=== PATIENT | female | born 1950 | race Hispanic/Latino ===

== ENCOUNTER → 2017-04-24 | Outpatient (CLI) | payer MEDICARE ==
--- NOTE | 2017-04-24 12:30 | Diagnostic Imaging Report ---
PROCEDURE:X-RAY LEFT HAND, THREE OR MORE VIEWS COMPARISON:None. INDICATIONS:LEFT HAND PAIN FROM FALL FINDINGS: 3 views of the left hand (PA, lateral, and oblique) There are no fractures, dislocations, lytic or blastic lesions. There are moderate degenerative changes at the DIP joints and at the basilar joint of the thumb. The bones are well-mineralized. The soft-tissues are unremarkable. CONCLUSION: Osteoarthritis. No fractures. Dictated by: Robby Rader M.D. on 04/24/2017 at 12:39 Electronically approved by: Robby Rader M.D. on 04/24/2017 at 12:39
== END ==
LOC: RAD 10:08
PROVIDERS: ATTEND Internal Medicine
DX: M79.642 Pain in left hand (principal); M19.042 Primary osteoarthritis, left hand

== ENCOUNTER → 2018-03-24 | Outpatient (CLI) | payer MEDICARE ==
[~2018-03-24] MED LIST: AMLODIPINE BESYL5 MG PO; LEVOTHYROXINE75 MCG PO; ORENCIA125 MG/1 M; ROPINIROLE HC0.25 MG PO
--- NOTE | 2018-03-24 10:35 | Diagnostic Imaging Report ---
Abdominal ultrasound. History: Elevated liver function studies. Comparison: <None available>. Discussion: Transverse and longitudinal images of the abdomen were obtained demonstrating a liver of normal size with increased echogenicity measuring 12.2 cm in length. The portal vein is patent with hepatopetal flow and is within normal limits measuring 0.8 cm in diameter. The biliary tree is within normal limits with the common bile duct measuring 5 mm in diameter. The gallbladder has been removed. The kidneys are normal in size and echogenicity bilaterally without evidence of hydronephrosis, stones, or mass. The right kidney measures 10.7 x 4.7 x 5.0 cm and the left kidney measures 10.6 x 5.3 x 5.1 cm. The spleen is normal in size and appearance measuring 9.9 x 4.9 x 4.1 cm. The pancreatic head and body are visualized and are normal in appearance. The abdominal aorta is within normal limits and has a maximal measurement of 2.2 cm. There is no evidence of free fluid. IMPRESSION: Increased echogenicity of the liver without evidence of a mass. Signed by: Dr. Richard Roy DO on 03/24/2018 10:32 AM
== END ==
LOC: US 07:40
PROVIDERS: ATTEND Internal Medicine Gastroenterology
DX: R94.8 Abnormal results of function studies of other organs and systems (principal)
CPT/HCPCS: 76700

== ENCOUNTER → 2018-04-02 | Day surgery (SDC) | payer MEDICARE ==
[2018-04-01 14:53] LABS: BASOPHILS % 0.6 % (0.0-1.0); EOSINOPHILS # (AUTO) 0.2 (0.0-0.4); EOSINOPHILS % 2.3 % (0.0-6.0); HEMATOCRIT 43.8 % (34.2-44.1); HEMOGLOBIN 14.3 g/dL (12.0-16.0); LYMPHOCYTES # (AUTO) 1.8 (1.0-3.2); LYMPHOCYTES % 27.8 % (18.0-39.1); MEAN CORPUSCULAR HEMOGLOBIN 31.6 pg (28-32); MEAN CORPUSCULAR HGB CONC 32.6 g/dL (31-35); MEAN CORPUSCULAR VOLUME 96.9 fL (81-99); MONOCYTES # (AUTO) 0.7 (0.2-0.8); MONOCYTES % 9.8 % (4.4-11.3); NEUTROPHILS # (AUTO) 3.9 (2.1-6.9); NEUTROPHILS % 59.2 % (38.7-80.0); PLATELET COUNT 117 x10e3/uL (140-360); RED BLOOD COUNT 4.52 x10e6/uL (3.6-5.1); RED CELL DISTRIBUTION WIDTH 13.7 % (11.7-14.4)
[~2018-04-02] MED LIST changes: +LIDOCAINE HCL 2% LOCAL INJ 5 ML SDV VIAL INJ ONE; +MIDAZOLAM HCL 2 MG/2 ML VIAL ONE; +PROPOFOL IV EMULSION 10 MG/ML 50 ML VIAL ONE
--- OUTSIDE RECORDS SUMMARY | 2018-04-02 07:32 | XMS REPORT ---
Author Author Dereck Stone Organization [employer] Address Unknown Phone Unavailable Care Team Providers Care Brick Paving Checker Name Role Phone Dereck Stone CP Unavailable Allergies No Known Allergies Problems Problem Type Condition Code Onset Dates Condition Status Problem Osteopenia M85.80 Active Problem Shoulder pain, right M25.511 Active Problem Ankle pain, right M25.571 Active Problem Rheumatoid arthritis M06.9 Active Problem Long-term use of immunosuppressant medication Z79.899 Active Medications Medication Code System Code Instructions Start Date End Date Status Dosage Medrol Dose [facility] 08936964108 4mg Orally once a day Mar 04, 2018 Active as directed Results No Known Results Summary Purpose [employer]ClinicalWorks Submission
--- OUTSIDE RECORDS SUMMARY | 2018-04-02 07:32 | XMS REPORT ---
Author Author Dereck Stone Organization [employer] Address Unknown Phone Unavailable Care Team Providers Care Director Fundraising Name Role Phone Dereck Stone CP Unavailable Allergies, Adverse Reactions, Alerts Substance Reaction Event Type Humira Info Not Available Drug Allergy Enbrel Info Not Available Drug Allergy Problems Problem Type Condition Code Onset Dates Condition Status Problem Osteopenia M85.80 Active Problem Shoulder pain, right M25.511 Active Problem Ankle pain, right M25.571 Active Assessment Ankle pain, right M25.571 Active Assessment Rheumatoid arthritis M06.9 Active Problem Rheumatoid arthritis M06.9 Active Problem Long-term use of immunosuppressant medication Z79.899 Active Medications Medication Code System Code Instructions Start Date End Date Status Dosage Leflunomide ND 59396868824 20MG Dec 16, 2017 Active take one tablet by mouth once daily for 30 days Levothyroxine Sodium NDC 88946331557 75 MCG Orally Once a day Active 1 tablet Ibuprofen NDC 66121292261 250 MG Orally once a day Active 1 tablet Primidone NDC 44063921620 50 MG Orally once a day Active 1 tablet Calcium NDC 0 1200 MG orally daily Active 1 tablet ORENCIA SQ NDC 0 125MG SUBCUTANEOUSLY ONCE A WEEK Active 125MG PredniSONE NDC 0 5 MG Orally Once a day Active 1 tab vitamin D NDC 0 800 IU po Once a day Active 1 tablet Vital Signs Date/Time: August 18, 2017 BMI 31.30 Index Weight 155 lbs Height 59 in Temperature 96.7 F Cardiac Monitoring Heart Rate 78 /min Blood Pressure Diastolic 82 mm Hg Blood Pressure Systolic 132 mm Hg Results No Known Results Summary Purpose [employer] Submission
--- OUTSIDE RECORDS SUMMARY | 2018-04-02 07:32 | XMS REPORT ---
Author Author Dereck Stone Organization [employer] Address Unknown Phone Unavailable Care Team Providers Care Tractor Mechanic Apprentice Name Role Phone Dereck Stone CP Unavailable Allergies, Adverse Reactions, Alerts Substance Reaction Event Type Humira Info Not Available Drug Allergy Enbrel Info Not Available Drug Allergy Problems Problem Type Condition Code Onset Dates Condition Status Problem Shoulder pain, right M25.511 Active Problem Long-term use of immunosuppressant medication Z79.899 Active Problem Osteopenia M85.80 Active Assessment Long-term use of immunosuppressant medication Z79.899 Active Problem Rheumatoid arthritis M06.9 Active Assessment Rheumatoid arthritis M06.9 Active Medications Medication Code System Code Instructions Start Date End Date Status Dosage Levothyroxine Sodium NDC 97333820441 75 MCG Orally Once a day Active 1 tablet Calcium NDC 0 1200 MG orally daily Active 1 tablet Primidone NDC 49883254031 50 MG Orally once a day Active 1 tablet PredniSONE NDC 0 5 MG Orally Once a day Nov 07, 2016 Active 1 tab Leflunomide NDC 63229424259 20 MG Orally Once a day Feb 10, 2017 Active 1 tablet vitamin D NDC 0 800 IU po Once a day Active 1 tablet Ibuprofen NDC 71085865868 250 MG Orally once a day Active 1 tablet ORENCIA SQ NDC 0 125MG SUBCUTANEOUSLY ONCE A WEEK Jan 27, 2017 Active 125MG Vital Signs Date/Time: May 07, 2017 BMI 32.31 Index Weight 160 lbs Height 59 in Temperature 98.4 F Cardiac Monitoring Heart Rate 68 /min Blood Pressure Diastolic 74 mm Hg Blood Pressure Systolic 130 mm Hg Results No Known Results Summary Purpose [employer]Clinical[employer] Submission
--- OUTSIDE RECORDS SUMMARY | 2018-04-02 07:32 | XMS REPORT | Continuity of Care Document ---
Author Author [facility] Address Unknown Phone Unavailable Problems Problem Status Onset Date Classification Date Reported Comments Source Chronic right shoulder pain Active 08/09/2015 Problem 02/04/2018 [facility]erged With [facility] Decreased ROM of right shoulder Active 08/09/2015 Problem 02/04/2018 Merged With [facility] Weakness Active 08/09/2015 Problem 02/04/2018 M[facility]ed With [facility] Mild cognitive impairment Active 07/08/2015 Problem 02/04/2018 Merged With [facility] Asymptomatic C diff. carrier Active 07/05/2015 Problem 02/04/2018 M[facility]ed With [facility] Chronic disease anemia Active 07/03/2015 Problem 02/04/2018 M[facility]ed With [facility] Osteoarthritis of right shoulder Active 07/03/2015 Problem 02/04/2018 Merged With [facility] Pain in joint, shoulder region Active 08/31/2014 Problem 02/04/2018 Merged With [facility] Depressive disorder, not elsewhere classified Active 04/21/2014 Problem 02/04/2018 Merged With [facility] Cupping of optic disc Active 01/18/2014 Problem 02/04/2018 Merged With [facility] NS Active 01/18/2014 Problem 02/04/2018 Merged With [facility] Hyperopia with astigmatism and presbyopia Active 01/18/2014 Problem 02/04/2018 M[facility]ed With [facility] Hypothyroidism Active 01/02/2014 Problem 02/04/2018 M[facility]ed With [facility] Inflammatory arthritis Active 06/23/2013 Problem 02/04/2018 M[facility]ed With [facility] Erosive osteoarthritis Active 06/23/2013 Problem 02/04/2018 Merged With [facility] Tremor Active 12/07/2009 Problem 02/04/2018 M[facility]ed With [facility] Cholecystitis Active 08/10/2009 Problem 02/04/2018 Merged With [facility] Abnormal pap Active 12/06/2007 Problem 02/04/2018 Merged With [facility] Shoulder pain, right Active Problem 03/11/2018 Douglas Barrientos Long-term use of immunosuppressant medication Active Problem 03/11/2018 Douglas Barrientos Osteopenia Active Problem 03/11/2018 Douglas Barrientos Rheumatoid arthritis Active Problem 03/11/2018 Douglas Barrientos Ankle pain, right Active Problem 03/11/2018 Douglas Barrientos Elevated LFTs Active Diagnosis 2018 Douglas Barrientos Acute streptococcal pharyngitis Active Problem 02/04/2018 Merged With [facility] Medications Medication Details Route Status Patient Instructions Ordering Provider Order Date Source Hydroxychloroquine Sulfate 1 tablet with food or milk Orally Active 200 MG Orally twice a day Chase 03/05/2018 Douglas Barrientos Medrol Dose Luis as directed Orally Active 4mg Orally once a day Chase 03/04/2018 Douglas Barrientos Medrol Dose Luis as directed Orally Active 4mg Orally once a day Chase 02/02/2018 Douglas aBrrientos Leflunomide 1 tablet Orally Active 20MG Orally Once a day Chase 02/02/2018 Douglas Barrientos Leflunomide take one tablet by mouth once daily for 30 days NA Active 20MG Chase 12/16/2017 Douglas Barrientos ORENCIA SQ 125MG SUBCUTANEOUSLY Active 125MG SUBCUTANEOUSLY ONCE A WEEK Chase 11/13/2017 Douglas Barrientos Sulfasalazine 3 tablet Orally Active 500 MG Orally bid Chase 11/03/2017 Douglas Barrientos PredniSONE 1 tab Orally Active 5 MG Orally Once a day Chase 10/14/2017 Douglas Barrientos PredniSONE 1 tab Orally Active 5 MG Orally Once a day Chase 10/14/2017 Douglas Barrientos ORENCIA SQ 125MG SUBCUTANEOUSLY Active 125MG SUBCUTANEOUSLY ONCE A WEEK Chase 08/21/2017 Douglas Barrientos ORENCIA SQ 125MG SUBCUTANEOUSLY Active 125MG SUBCUTANEOUSLY ONCE A WEEK Fakoya 05/18/2017 Douglas Barrientos PredniSONE 1 tab Orally Active 5 MG Orally Once a day Fakoya 05/18/2017 Douglas Barrientos Premarin 0.625 Mg/Gram Vaginal Cream Insert 0.5 g vaginally 3 times weekly. Vaginal Active 05/08/2017 Merged With [facility] Dorzolamide 22.3 Mg-Timolol 6.8 Mg/Ml Eye Drops 1 Drop 2 times daily. No Longer Active 05/07/2017 Merged With [facility] Orencia 125 Mg/Ml Subcutaneous Syringe Active 04/27/2017 Merged With [facility] Prednisone 5 Mg Tablet Active 04/27/2017 Merged With [facility] Leflunomide 20 Mg Tablet Active 04/25/2017 M[facility]ed With [facility] Amlodipine 5 Mg Tablet Active 04/23/2017 Merged With [facility] Meloxicam 7.5 Mg Tablet Active 04/23/2017 Merged With [facility] Ciprodex 0.3 %-0.1 % Ear Drops,Suspension Active 04/15/2017 Merged With [facility] Leflunomide 1 tablet Orally Active 20 MG Orally Once a day Chase 02/10/2017 Douglas Barrientos Besivance 0.6 % Eye Drops,Suspension Active 02/10/2017 Merged With [facility] ORENCIA SQ 125MG SUBCUTANEOUSLY Active 125MG SUBCUTANEOUSLY ONCE A WEEK Chase 01/27/2017 Douglas Barrientos PredniSONE 1 tab Orally Active 5 MG Orally Once a day Chase 11/07/2016 Douglas Barrientos Alendronate Sodium 1 tablet Orally Active 70 MG Orally once a week Chase 10/22/2016 Douglas Barrientos Methotrexate 4 tabs Orally Active 2.5mg Orally Once a week Chase 06/25/2016 Douglas Barrientos Folic Acid 2 tablets Orally Active 1 MG Orally Once a day Chase 06/25/2016 Douglas Barrientos Tramadol 50 Mg Tablet Take 1 tablet by mouth every 6 hours as needed for Pain. Oral Active 06/02/2016 Merged With [facility] Levothyroxine 75 McG Tablet Take 1 tablet by mouth daily. Oral Active 05/13/2016 Merged With [facility] etanercept (ENBREL) 50 mg/mL (0.98 mL) injection Inject 0.98 mL under the skin weekly Needs to make appt to see rheum. Subcutaneous No Longer Active 01/29/2016 Merged With [facility] Primidone 50 Mg Tablet Take 1 tablet by mouth 3 times daily. Oral Active 01/14/2016 Merged With [facility] Lorazepam 1 Mg Tablet Ativan 1 Mg Tablet Take 30 minutes prior to MRI, may repeat in 20 minutes if still having anxiety. No Longer Active 08/06/2015 Merged With [facility] Cetirizine 10 Mg Tablet Zyrtec 10 Mg Tablet Take 1 tablet by mouth daily. Oral No Longer Active 07/09/2015 Merged With [facility] Methotrexate Sodium 2.5 Mg Tablet Take 8 tablets by mouth weekly. Oral No Longer Active 07/03/2015 Merged [facility] Folic Acid 1 Mg Tablet Take 1 tablet by mouth daily. Oral No Longer Active 05/10/2015 Merged [facility] Promethazine 25 Mg Tablet Take 1 tablet by mouth every 6 hours as needed for Nausea or Vomiting. Oral No Longer Active 03/12/2015 Merged [facility] Dexilant 60 Mg Capsule, Delayed Release Take 1 capsule by mouth daily. Oral No Longer Active 03/12/2015 Merged With [facility] Methotrexate Sodium 2.5 Mg Tablet Take 8 tablets by mouth weekly. Oral No Longer Active 01/11/2015 Merged [facility] Escitalopram 10 Mg Tablet Take 1 and 1/2 tablets by mouth daily. Oral No Longer Active 12/29/2014 Merged With [facility] Diclofenac Sodium 75 Mg Tablet,Delayed Release Take 1 tablet by mouth daily. Oral No Longer Active 12/06/2014 Merged [facility] Trazodone 50 Mg Tablet Take 1 tablet by mouth nightly at bedtime as needed for Sleep. Oral Active 10/06/2014 Merged With [facility] Ergocalciferol (Vitamin D2) 50,000 Unit Capsule Vitamin D2 50,000 Unit Capsule Take 1 capsule by mouth weekly. Oral No Longer Active 08/31/2014 Merged With [facility] Vesicare 5 Mg Tablet Take 1 tablet by mouth daily. Oral No Longer Active 08/07/2014 Merged [facility] Hydrocortisone 0.5 % Topical Ointment Apply to affected area 2 times daily. NONFORMULARY Topical No Longer Active 08/07/2014 Merged With [facility] Methocarbamol 750 Mg Tablet Take 1 tablet by mouth 4 times daily as needed for Other (muscular pains). Oral No Longer Active 06/01/2014 Merged With [facility] Premarin 0.625 Mg/Gram Vaginal Cream Insert 0.5 g vaginally 3 times weekly. Vaginal No Longer Active 05/22/2014 Merged With [facility] Vesicare 5 Mg Tablet Take 1 tablet by mouth daily. Oral No Longer Active 05/22/2014 Merged [facility] Folic Acid 1 Mg Tablet Take 1 tablet by mouth daily. Oral No Longer Active 03/20/2014 [facility]ed [facility] Loratadine 10 Mg Tablet Take 1 tablet by mouth daily Oral No Longer Active 05/09/2013 Merged With [facility] Hydrocortisone 1 % Topical Ointment Apply to affected area daily. apply small amount to inner ear canal x 3 days for itching ear Topical No Longer Active 11/04/2010 Merged With [facility] Atrovent 0.03 % Nasal [place] inhale 2 sprays in each nostril by intranasal route 2-3 times daily Nasal No Longer Active 04/25/2009 Merged With [facility] Levothyroxine Sodium 1 tablet Orally Active 75 MCG Orally Once a day Chase Douglas Barrientos Calcium 1 tablet orally Active 1200 MG orally daily Chase Douglas Barrientos Primidone 1 tablet Orally Active 50 MG Orally once a day Chase Douglas Barrientos vitamin D 1 tablet po Active 800 IU po Once a day Chase Douglas Barrientos PredniSONE 1 tab Orally Active 5 MG Orally Once a day Chase Douglas Barrientos Leflunomide take one tablet by mouth once daily for 30 days NA Active 20MG Chase Douglas Barrientos ORENCIA SQ 125MG SUBCUTANEOUSLY Active 125MG SUBCUTANEOUSLY ONCE A WEEK Chase Douglas Barrientos Ibuprofen 1 tablet Orally Active 250 MG Orally once a day Chase Douglas Barrientos Propranolol HCl 1 tablet on an empty stomach Orally Active 10 MG Orally Once a day Chase Douglas Barrientos Amlodipine Besylate 1 tablet Orally Active 5 MG Orally Once a day Chase Douglas Barrientos Allergies, Adverse Reactions, Alerts Substance Category Reaction Severity Reaction type Status Date Reported Comments Source Oxybutynin Propensity to adverse reactions to drug Active 05/22/2014 Merged With [facility] Humira Adverse Reaction Info Not Available Adverse Reaction Active 02/02/2018 Douglas Barrientos Enbrel Adverse Reaction Info Not Available Adverse Reaction Active 02/02/2018 Douglas Barrientos Immunizations Immunization Date Given Site Status Last Updated Comments Source PCV 13 (Pnuemococcal Conjugated 13 Valent) 06/01/2017 completed Merged With [facility] Influenza Vaccine, Seasonal, Injectable 05/07/2017 Not Given Deferred: Patient already had this immunization M[facility]ed [facility] Influenza <Unspecified> 05/03/2017 completed [facility] Influenza Vaccine 03/12/2015 completed [facility] Influenza Vaccine 02/09/2015 Not Given Deferred: Other - Patient feeling ill and weak/defer to next PCP visit M[facility] PPD 06/20/2014 completed [facility] Influenza Vaccine 02/07/2014 completed [facility] Influenza Vaccine 12/30/2010 completed [facility]erged [facility] Influenza Vaccine 01/03/2010 completed [facility] Tdap Tetanus, diphtheria, acellular pertussis Vaccine 01/03/2010 completed M[facility]ed With [facility] Influenza Vaccine 03/03/2008 completed Merged With [facility] Results Order Name Results Value Reference Range Date Interpretation Comments Source Vital Signs Vital Sign Value Date Comments Source Weight 155.7 02/02/2018 Douglas Barrientos Height 59 02/02/2018 Douglas Barrientos Temperature Oral (F) 98.0 F 02/02/2018 Douglas Barrientos Heart Rate 68 02/02/2018 Douglas Barrientos Diastolic (mm Hg) 80 02/02/2018 Douglas Barrientos Systolic (mm Hg) 122 02/02/2018 Douglas Barrientos Weight 163 11/03/2017 Douglas Barrientos Height 59 11/03/2017 Douglas Barrientos Temperature Oral (F) 98.5 F 11/03/2017 Douglas Barrientos Heart Rate 64 11/03/2017 Douglas Barrientos Diastolic (mm Hg) 88 11/03/2017 Douglas Barrientos Systolic (mm Hg) 132 11/03/2017 Douglas Barrientos Weight 155 08/18/2017 Douglas Barrientos Height 59 08/18/2017 Douglas Barrientos Temperature Oral (F) 96.7 F 08/18/2017 Douglas Barrientos Heart Rate 78 08/18/2017 Douglas Barrientos Diastolic (mm Hg) 82 08/18/2017 Douglas Barrientos Systolic (mm Hg) 132 08/18/2017 Douglas Barrientos Weight 158 08/04/2017 Douglas Barrientos Height 59 08/04/2017 Douglas Barrientos Temperature Oral (F) 98.6 F 08/04/2017 Douglas Barrientos Heart Rate 72 08/04/2017 Douglas Barrientos Diastolic (mm Hg) 90 08/04/2017 Douglas Barrientos Systolic (mm Hg) 150 08/04/2017 Douglas Barrientos Weight 160 05/07/2017 Douglas Barrientos Height 59 05/07/2017 Douglas Barrientos Temperature Oral (F) 98.4 F 05/07/2017 Douglas Barrientos Heart Rate 68 05/07/2017 Douglas Barrientos Diastolic (mm Hg) 74 05/07/2017 Douglas Barrientos Systolic (mm Hg) 130 05/07/2017 Douglas Barrientos Systolic (mm Hg) 146 05/07/2017 [facility] Diastolic (mm Hg) 79 05/07/2017 [facility] Heart Rate 62 05/07/2017 [facility] Temperature Oral (F) 36.89 Carolyn 05/07/2017 [facility] Respitory Rate 18 05/07/2017 [facility] Height 149.9 cm 05/07/2017 [facility] Weight 71.033 05/07/2017 Merged With [facility] BMI Calculated 31.63 05/07/2017 [facility] Weight 157.2 02/10/2017 Douglas Barrientos Height 59 02/10/2017 Douglas Barrientos Temperature Oral (F) 98.8 F 02/10/2017 Douglas Barrientos Heart Rate 64 02/10/2017 Douglas Barrientos Diastolic (mm Hg) 80 02/10/2017 Douglas Barrientos Systolic (mm Hg) 100 02/10/2017 Douglas Barrientos Encounters Location Location Details Encounter Type Encounter Number Reason For Visit Attending Provider ADM Date DC Date Status Source [facility] Office Visit [id number] Vaginal dryness, menopausal Flu vaccine need Need for pneumococcal vaccination Need for shingles vaccine Female stress incontinence Tish Garcia NP 05/07/2017 05/07/2017 Merged With [facility] Nursing [place] Nurse Only [id number] Immunization due Tish Garcia NP 06/01/2017 06/01/2017 Merged With [facility] Procedures Procedure Code Date Perfomer Comments Source
--- OUTSIDE RECORDS SUMMARY | 2018-04-02 07:32 | XMS REPORT ---
Author Author Bernie Jett Organization [employer] Address Unknown Phone Unavailable Care Team Providers Care Automatic I Threading Machine Feeder Name Role Phone AfshanpieterBernie CP Unavailable Allergies No Known Allergies Problems Problem Type Condition Code Onset Dates Condition Status Problem Shoulder pain, right M25.511 Active Problem Long-term use of immunosuppressant medication Z79.899 Active Problem Osteopenia M85.80 Active Problem Rheumatoid arthritis M06.9 Active Medications Medication Code System Code Instructions Start Date End Date Status Dosage ORENCIA SQ NDC 0 125MG SUBCUTANEOUSLY ONCE A WEEK May 18, 2017 Active 125MG PredniSONE NDC 0 5 MG Orally Once a day May 18, 2017 Active 1 tab Results No Known Results Summary Purpose [employer] Submission
--- OUTSIDE RECORDS SUMMARY | 2018-04-02 07:32 | XMS REPORT ---
Author Author Dereck Stone Organization [employer] Address Unknown Phone Unavailable Care Team Providers Care Sleeve Sewer Name Role Phone Dereck Stone CP Unavailable [...] End Date Status Dosage Levothyroxine Sodium NDC 50262921129 75 MCG Orally Once a day Active 1 tablet Calcium NDC 0 1200 MG orally daily Active 1 tablet Primidone NDC 11591902943 50 MG Orally once a day Active 1 tablet vitamin D NDC 0 800 IU po Once a day Active 1 tablet PredniSONE NDC 0 5 MG Orally Once a day Active 1 tab Leflunomide NDC 64468283266 20MG Active TAKE ONE TABLET BY MOUTH ONCE DAILY FOR 30 DAYS ORENCIA SQ NDC 0 125MG SUBCUTANEOUSLY ONCE A WEEK Active 125MG Ibuprofen NDC 35615809655 250 MG Orally once a day Active 1 tablet Vital Signs Date/Time: August 04, 2017 BMI 31.91 Index Weight 158 lbs Height 59 in Temperature 98.6 F Cardiac Monitoring Heart Rate 72 /min Blood Pressure Diastolic 90 mm Hg Blood Pressure Systolic 150 mm Hg Results No Known Results Summary Purpose [employer] Submission
--- OUTSIDE RECORDS SUMMARY | 2018-04-02 07:32 | XMS REPORT | Clinical Summary ---
Author Author [facility] Organization [facility] Address Unknown Phone Unavailable Care Team Providers Care Rivet Sorter Name Role Phone Gama Cash MD PCP Allergies Not on File Medications Not on file Active Problems Not on file Encounters Care Team Description Date Type Specialty ThursdayLanette MD Parkinson disease 11/26/2017 Hospital Radiology Encounter ThursdayLanette MD Parkinson disease 11/26/2017 Hospital Radiology Encounter ThursdayLanette MD Parkinson disease (Primary Dx) 11/17/2017 Transcribe Radiology Orders after 04/01/2017 Social History Date Tobacco Use Types Packs/Day Years Used Never Assessed Sex Assigned at Date Recorded Not on file Industry Job Start Date Occupation Not on file Not on file Not on file Travel End Travel History Travel Start No recent travel history available. Last Filed Vital Signs Not on file Plan of Treatment Health Maintenance Due Date Last Done Comments BREAST CANCER SCREENING 2001 COLON CANCER SCREENING 2001 SHINGLES VACCINES (1 of 2001 2) PNEUMOCOCCAL 02/12/2016 POLYSACCHARIDE VACCINE AGE 65 AND OVER INFLUENZA VACCINE 10/28/2017 05/03/2017 PNEUMOCOCCAL-13 Completed 06/01/2017 Procedures Comments Procedure Name Priority Date/Time Associated Diagnosis NM BRAIN SPECT W I 123 Routine 11/26/2017 Parkinson disease DATSCAN 2:05 PM CDT after 04/01/2017 Results * NM Brain Spect W I 123 Datscan (11/26/2017 2:05 PM CDT) Narrative Performed At PROCEDURE:NM BRAIN SPECT W I 123 DATSCAN [facility] INDICATION:Parkinson's disease. TECHNIQUE: The patient was pretreated with potassium iodide drops for thyroid protection and then injected with 4 mCi of I-123 DaTscan IV. Brain SPECT imaging was then performed. FINDINGS:Decreased uptake is noted in the posterior left striata.Uptake on the right side appears relatively normal. IMPRESSION: 1.Abnormal study, which would be compatible with an underlying primary Parkinsonian syndrome in the appropriate clinical setting. 2.However, since findings are largely unilateral, also on the differential is mass effect or sequela of prior ischemia.Correlate with MRI of the brain, as clinically appropriate. [facility]-[id number] Procedure Note Interface, Radiology Results Incoming - 11/26/2017 7:13 PM CDT PROCEDURE: NM BRAIN SPECT W I 123 DATSCAN INDICATION: Parkinson's disease. TECHNIQUE: The patient was pretreated with potassium iodide drops for thyroid protection and then injected with 4 mCi of I-123 DaTscan IV. Brain SPECT imaging was then performed. FINDINGS: Decreased uptake is noted in the posterior left striata. Uptake on the right side appears relatively normal. IMPRESSION: 1. Abnormal study, which would be compatible with an underlying primary Parkinsonian syndrome in the appropriate clinical setting. 2. However, since findings are largely unilateral, also on the differential is mass effect or sequela of prior ischemia. Correlate with MRI of the brain, as clinically appropriate. [facility]-[id number] Performing Organization Address City/State/Zipcode Phone Number [facility] [address] [place] [address] after 04/01/2017 Insurance Payer Benefit Subscriber ID Type Phone Address Plan / Group [facility] MEDICARE [place]ARP x[place] [facility] [facility] Advance Directives Patient has advance care planning documents on file. For more information, ingrid matthews contact: Christiano Ellison [address] [place] [address]
--- OUTSIDE RECORDS SUMMARY | 2018-04-02 07:32 | XMS REPORT ---
Author Author Dereck Stone Organization [employer] Address Unknown Phone Unavailable Care Team Providers Care Teacher Adult Education Name Role Phone Dereck Stone CP Unavailable [...] NDC 0 125MG SUBCUTANEOUSLY ONCE A WEEK August 21, 2017 Active 125MG Results No Known Results Summary Purpose [employer]Works Submission
--- OUTSIDE RECORDS SUMMARY | 2018-04-02 07:32 | XMS REPORT ---
Author Author Jorge Barrientos Organization [employer] Address Unknown Phone Unavailable Care Team Providers Care Sales Marketing Coordinator Name Role Phone Jorge Barrientos CP Unavailable Allergies No Known Allergies Problems Problem Type Condition Code Onset Dates Condition Status Problem Shoulder pain, right M25.511 Active Problem Long-term use of immunosuppressant medication Z79.899 Active Problem Osteopenia M85.80 Active Problem Rheumatoid arthritis M06.9 Active Medications No Known Medications Results No Known Results Summary Purpose [employer]Clinical[employer] Submission
--- OUTSIDE RECORDS SUMMARY | 2018-04-02 07:32 | XMS REPORT ---
Author Author Dereck Stone Organization [employer] Address Unknown Phone Unavailable Care Team Providers Care Plastic Press Molder Name Role Phone Dereck Stone CP Unavailable Allergies No Known Allergies Problems Problem Type Condition Code Onset Dates Condition Status Problem Osteopenia M85.80 Active Problem Shoulder pain, right M25.511 Active Problem Ankle pain, right M25.571 Active Assessment Rheumatoid [...]
--- OUTSIDE RECORDS SUMMARY | 2018-04-02 07:32 | XMS REPORT ---
Author Author Jorge Barrientos Organization [employer] Address Unknown Phone Unavailable Care Team Providers Care Tester Vibrator Equipment Name Role Phone Jorge Barrientos CP Unavailable Allergies No Known Allergies Problems Problem Type Condition Code Onset Dates Condition Status Assessment Long-term use of immunosuppressant medication Z79.899 Active Assessment Elevated LFTs R79.89 Active Problem Osteopenia M85.80 Active Problem Shoulder pain, right M25.511 Active Problem Ankle pain, right M25.571 Active Assessment Rheumatoid arthritis M06.9 Active Problem Rheumatoid arthritis M06.9 Active Problem Long-term use of immunosuppressant medication Z79.899 Active Medications No Known Medications Results No Known Results Summary Purpose [employer] Submission
--- OUTSIDE RECORDS SUMMARY | 2018-04-02 07:32 | XMS REPORT ---
Author Author Jorge Barrientos Organization [employer] Address Unknown Phone Unavailable Care Team Providers Care Planing Machine Operator Name Role Phone Jorge Barrientos CP Unavailable Allergies No Known Allergies Problems Problem Type Condition Code Onset Dates Condition Status Problem Shoulder pain, right M25.511 Active Problem Long-term use of immunosuppressant medication Z79.899 Active Problem Osteopenia M85.80 Active Problem Rheumatoid arthritis M06.9 Active Medications No Known Medications Results No Known Results Summary Purpose [employer] Submission
--- OUTSIDE RECORDS SUMMARY | 2018-04-02 07:32 | XMS REPORT ---
Author Author Dereck Stone Organization [employer] Address Unknown Phone Unavailable Care Team Providers Care Software Quality Assurance Specialist Name Role Phone ChaseDereck christensen CP Unavailable Allergies, Adverse Reactions, Alerts Substance [...] Instructions Start Date End Date Status Dosage Alendronate Sodium NDC 44777783749 70 MG Orally once a week October 22, 2016 Active 1 tablet Methotrexate NDC 0 2.5mg Orally Once a week June 25, 2016 Feb 10, 2017 Inactive 4 tabs Calcium NDC 0 1200 MG orally daily Active 1 tablet Leflunomide NDC 46346203652 20 MG Orally Once a day Feb 10, 2017 June 10, 2017 Active 1 tablet Folic Acid NDC 33811634950 1 MG Orally Once a day June 25, 2016 Feb 10, 2017 Inactive 2 tablets Ibuprofen NDC 71211952188 250 MG Orally once a day Active 1 tablet Levothyroxine Sodium NDC 36415475103 75 MCG Orally Once a day Active 1 tablet vitamin D NDC 0 800 IU po Once a day Active 1 tablet Primidone NDC 83197394257 50 MG Orally once a day Active 1 tablet PredniSONE NDC 0 5 MG Orally Once a day Nov 07, 2016 Active 1 tab ORENCIA SQ NDC 0 125MG SUBCUTANEOUSLY ONCE A WEEK Jan 27, 2017 Active 125MG Vital Signs Date/Time: Feb 10, 2017 BMI 31.75 Index Weight 157.2 lbs Height 59 in Temperature 98.8 F Cardiac Monitoring Heart Rate 64 /min Blood Pressure Diastolic 80 mm Hg Blood Pressure Systolic 100 mm Hg Results No Known Results Summary Purpose [employer]Works Submission
--- OUTSIDE RECORDS SUMMARY | 2018-04-02 07:32 | XMS REPORT ---
Author Author Dereck Stone Organization [employer] Address Unknown Phone Unavailable Care Team Providers Care Box Maker Wood Name Role Phone Dereck Stone CP Unavailable Allergies No Known Allergies Problems Problem Type Condition Code Onset Dates Condition Status Problem Osteopenia M85.80 Active Problem Shoulder pain, right M25.511 Active Problem Ankle pain, right M25.571 Active Problem Rheumatoid arthritis M06.9 Active Problem Long-term use of immunosuppressant medication Z79.899 Active Medications Medication Code System Code Instructions Start Date End Date Status Dosage PredniSONE NDC 0 5 MG Orally Once a day October 14, 2017 Active 1 tab Results No Known Results Summary Purpose [employer] Submission
--- OUTSIDE RECORDS SUMMARY | 2018-04-02 07:33 | XMS REPORT ---
Author Author Jorge Barrientos Organization [employer] Address Unknown Phone Unavailable Care Team Providers Care Secretarial Teacher Name Role Phone Jorge Barrientos CP Unavailable [...]
--- OUTSIDE RECORDS SUMMARY | 2018-04-02 07:33 | XMS REPORT ---
Author Author Dereck Stone [facility] [employer] Address Unknown Phone Unavailable Care Team Providers Care Glass Etcher Helper Name Role Phone Dereck Stone Unavailable Allergies, Adverse Reactions, Alerts Substance Reaction Event Type Humira Info Not Available Drug Allergy Enbrel Info Not Available Drug Allergy Problems Problem Type Condition Code Onset Dates Condition Status Problem Osteopenia M85.80 Active Problem Shoulder pain, right M25.511 Active Problem Ankle pain, right M25.571 Active Assessment Rheumatoid arthritis M06.9 Active Assessment Long-term use of immunosuppressant medication Z79.899 Active Problem Rheumatoid arthritis M06.9 Active Problem Long-term use of immunosuppressant medication Z79.899 Active Medications Medication Code System Code Instructions Start Date End Date Status Dosage Calcium NDC 0 1200 MG orally daily Active 1 tablet Sulfasalazine NDC 30319497695 500 MG Orally bid Nov 03, 2017 Mar 03, 2018 Active 1 tablet Ibuprofen NDC 11475464351 250 MG Orally once a day Active 1 tablet Amlodipine Besylate NDC 34835875942 5 MG Orally Once a day Active 1 tablet Levothyroxine Sodium NDC 43736348230 75 MCG Orally Once a day Active 1 tablet vitamin D NDC 0 800 IU po Once a day Active 1 tablet PredniSONE NDC 0 5 MG Orally Once a day Active 1 tab ORENCIA SQ NDC 0 125MG SUBCUTANEOUSLY ONCE A WEEK Active 125MG Leflunomide NDC 76069435662 20MG Active take one tablet by mouth once daily for 30 days Primidone NDC 90799952192 50 MG Orally once a day Active 1 tablet Vital Signs Date/Time: Nov 03, 2017 BMI 32.92 Index Weight 163 lbs Height 59 in Temperature 98.5 F Cardiac Monitoring Heart Rate 64 /min Blood Pressure Diastolic 88 mm Hg Blood Pressure Systolic 132 mm Hg Results Name Result Date Reference Range Unit Abnormality Flag COMPREHENSIVE METABOLIC PANEL W/EGFR ----CALCIUM 8.6 56412897 8.6-10.4 mg/dL N ----CARBON DIOXIDE 31 20171103 20-32 mmol/L N ----ALT 22 20171103 6-29 U/L N ----CREATININE 0.78 20171103 0.50-0.99 mg/dL N ----AST 34 20171103 10-35 U/L N ----eGFR NON-AFR. [place] 79 [id number] > OR=60 mL/min/1.73m2 N ----ALKALINE PHOSPHATASE 151 20171103 33-130 U/L H ----eGFR 92 20171103 > OR=60 mL/min/1.73m2 N ----BILIRUBIN, TOTAL 0.6 20171103 0.2-1.2 mg/dL N ----BUN/CREATININE RATIO NOT APPLICABLE 20171103 6-22 (calc) ----ALBUMIN/GLOBULIN RATIO 1.3 89786923 1.0-2.5 (calc) N ----SODIUM 146 47579181 135-146 mmol/L N ----GLOBULIN 2.6 20171103 1.9-3.7 g/dL (calc) N ----POTASSIUM 3.2 12165072 3.5-5.3 mmol/L L ----GLUCOSE 95 69765644 65-139 mg/dL N ----CHLORIDE 110 74788333 98-110 mmol/L N ----ALBUMIN 3.5 03821591 3.6-5.1 g/dL L ----UREA NITROGEN (BUN) 18 20171103 7-25 mg/dL N ----PROTEIN, TOTAL 6.1 76846733 6.1-8.1 g/dL N SED RATE BY MODIFIED WESTERGREN ----SED RATE BY MODIFIED WESTERGREN 17 [id number] < OR=30 mm/h N C-REACTIVE PROTEIN ----C-REACTIVE PROTEIN 3.3 [id number] <8.0 mg/L N CBC (INCLUDES DIFF/PLT) ----MCHC 32.6 22533232 32.0-36.0 g/dL N ----MCH 31.2 87482787 27.0-33.0 pg N ----PLATELET COUNT 131 20171103 140-400 Thousand/uL L ----RDW 13.2 93649033 11.0-15.0 % N ----BASOPHILS 0.8 25661970 % N ----ABSOLUTE NEUTROPHILS 5362 44886465 2840-4780 cells/uL N ----ABSOLUTE LYMPHOCYTES 1892 31126582 850-3900 cells/uL N ----MPV 13.1 61354265 7.5-12.5 fL H ----ABSOLUTE BASOPHILS 66 60299216 0-200 cells/uL N ----HEMATOCRIT 38.9 94473691 35.0-45.0 % N ----NEUTROPHILS 64.6 14117086 % N ----MCV 95.6 03565733 80.0-100.0 fL N ----RED BLOOD CELL COUNT 4.07 38589175 3.80-5.10 Million/uL N ----ABSOLUTE MONOCYTES 880 69330476 200-950 cells/uL N ----ABSOLUTE EOSINOPHILS 100 67875893 15-500 cells/uL N ----HEMOGLOBIN 12.7 18037110 11.7-15.5 g/dL N ----EOSINOPHILS 1.2 99977444 % N ----WHITE BLOOD CELL COUNT 8.3 [id number] 3.8-10.8 Thousand/uL N ----LYMPHOCYTES 22.8 64750040 % N ----MONOCYTES 10.6 15915263 % N Summary Purpose eClinicalWorks Submission
--- OUTSIDE RECORDS SUMMARY | 2018-04-02 07:33 | XMS REPORT | Clinical Summary ---
Author Author [facility] Organization [facility] Address Unknown Phone Unavailable Care Team Providers Care Rn Social Services Name Role Phone Annette Christie MD PCP Allergies Active Allergy Reactions Severity Noted Date Comments Oxybutynin 05/22/2014 Current Medications Prescription Sig. Disp. Refills Start End Date Status Date traZODone (DESYREL) 50 mg Take 1 tablet by mouth 30 tablet 3 10/07/19 Active tabletIndications: nightly at bedtime as 15 Depression needed for Sleep. primidone (MYSOLINE) 50 Take 1 tablet by mouth 3 60 tablet 11 01/14/20 Active mg tabletIndications: times daily. 16 Tremor levothyroxine (SYNTHROID) Take 1 tablet by mouth 90 tablet 0 05/13/19 Active 75 mcg tabletIndications: daily. 17 Hypothyroidism, adult traMADol (ULTRAM) 50 mg Take 1 tablet by mouth 60 tablet 2 06/03/19 Active tabletIndications: every 6 hours as needed 17 Erosive osteoarthritis for Pain. ORENCIA 125 mg/mL Syrg 04/27/19 Active 18 amLODIPine (NORVASC) 5 mg 04/23/19 Active tablet 18 BESIVANCE 0.6 % 02/11/20 Active ophthalmic suspension 17 CIPRODEX 0.3-0.1 % otic 04/15/19 Active suspension 18 leflunomide (ARAVA) 20 mg 04/25/19 Active tablet 18 Meloxicam 7.5 mg tablet 04/23/19 Active 18 predniSONE (DELTASONE) 5 04/27/19 Active mg tablet 18 conjugated estrogens Insert 0.5 g vaginally 3 30 g 3 05/08/19 Active (PREMARIN) 0.625 mg/gram times weekly. 18 vaginal creamIndications: Female stress incontinence ATROVENT 0.03 % NASAL inhale 2 sprays in each 30ml 0 04/25/19 05/07/19 Discontin SPRAYIndications: URI, nostril by intranasal 10 18 ued acute, Acute sinusitis, route 2-3 times daily unspecified hydrocortisone 1 % Apply to affected area 30 g 0 11/05/19 05/07/19 Discontin ointmentIndications: Ear daily. apply small amount 11 18 ued itching to inner ear canal x 3 days for itching ear dorzolamide-timolol 1 Drop 2 times daily. 05/07/19 Discontin (COSOPT) 2-0.5 % 18 ued ophthalmic solution loratadine (CLARITIN) 10 Take 1 tablet by mouth 90 tablet 2 05/09/19 05/07/19 Discontin mg tabletIndications: daily 14 18 ued Allergic rhinosinusitis folic acid (FOLVITE) 1 mg Take 1 tablet by mouth 30 tablet 5 03/20/20 05/07/19 Discontin tabletIndications: daily. 14 18 ued Inflammatory arthritis conjugated estrogens Insert 0.5 g vaginally 3 30 g 3 05/22/19 05/07/19 Discontin (PREMARIN) 0.625 mg/gram times weekly. 15 18 ued vaginal creamIndications: Female stress incontinence solifenacin (VESICARE) 5 Take 1 tablet by mouth 30 tablet 3 05/22/19 05/07/19 Discontin mg tabletIndications: daily. 15 18 ued Female stress incontinence methocarbamol (ROBAXIN) Take 1 tablet by mouth 4 360 tablet 2 06/02/19 05/07/19 Discontin 750 mg tabletIndications: times daily as needed for 15 18 ued Osteoarthritis Other (muscular pains). solifenacin (VESICARE) 5 Take 1 tablet by mouth 30 tablet 11 08/08/19 05/07/19 Discontin mg tabletIndications: daily. 15 18 ued Urinary incontinence hydrocortsione 0.5 % Apply to affected area 2 30 g 0 08/08/19 05/07/19 Discontin ointmentIndications: times daily. NONFORMULARY 15 18 ued Itching ergocalciferol (VITAMIN Take 1 capsule by mouth 12 capsule 3 09/01/19 05/07/19 Discontin D2) 50,000 unit weekly. 15 18 ued capsuleIndications: Vitamin D deficiency diclofenac sodium 75 mg Take 1 tablet by mouth 30 tablet 0 12/07/19 05/07/19 Discontin delayed release daily. 15 18 ued tabletIndications: TMJ arthralgia escitalopram oxalate Take 1 and 1/2 tablets by 45 tablet 3 12/30/19 05/07/19 Discontin (LEXAPRO) 10 mg mouth daily. 15 18 ued tabletIndications: Depression methotrexate (TREXALL) Take 8 tablets by mouth 32 tablet 4 01/12/20 05/07/19 Discontin 2.5 mg tabletIndications: weekly. 15 18 ued Inflammatory arthritis promethazine (PHENERGAN) Take 1 tablet by mouth 30 tablet 0 03/12/20 05/07/19 Discontin 25 mg tabletIndications: every 6 hours as needed 15 18 ued Nausea for Nausea or Vomiting. dexlansoprazole Take 1 capsule by mouth 90 capsule 1 03/12/20 05/07/19 Discontin (DEXILANT) 60 mg delayed daily. 15 18 ued release capsuleIndications: Nausea folic acid (FOLVITE) 1 mg Take 1 tablet by mouth 90 tablet 1 05/10/19 05/07/19 Discontin tabletIndications: Folic daily. 16 18 ued acid deficiency methotrexate (TREXALL) Take 8 tablets by mouth 32 tablet 5 07/03/19 05/07/19 Discontin 2.5 mg tabletIndications: weekly. 16 18 ued Inflammatory arthritis cetirizine (ZYRTEC) 10 mg Take 1 tablet by mouth 90 tablet 2 07/09/19 05/07/19 Discontin tabletIndications: daily. 16 18 ued Allergic rhinitis, unspecified allergic rhinitis type LORazepam (ATIVAN) 1 mg Take 30 minutes prior to 2 tablet 0 08/06/19 05/07/19 Discontin tabletIndications: Pain MRI, may repeat in 20 16 18 ued in joint of right minutes if still having shoulder anxiety. etanercept (ENBREL) 50 Inject 0.98 mL under the 4 Syringe 1 01/29/20 05/07/19 Discontin mg/mL (0.98 mL) skin weekly Needs to make 16 18 ued injectionIndications: appt to see rheum. 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 ( + serology w/o diarrhea, N/V - treated 07/05/2015 given patient will be immunocompromised from MTX / Enbrel) Chronic disease anemia 07/03/2015 Osteoarthritis of right shoulder 07/03/2015 Pain in joint, shoulder region 08/31/2014 Depressive disorder, not elsewhere classified 04/21/2014 Cupping of optic disc 01/18/2014 NS (nuclear sclerosis) 01/18/2014 Hyperopia with astigmatism and presbyopia 01/18/2014 Hypothyroidism 01/02/2014 Inflammatory arthritis 06/23/2013 Erosive osteoarthritis 06/23/2013 Tremor 12/07/2009 Cholecystitis 08/10/2009 Abnormal pap 12/06/2007 Acute streptococcal pharyngitis Encounters Date Type Specialty Care Team Description 06/01/2017 Nurse Only Tish Garcia NP Immunization due (Primary 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, 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, 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) 05/07/2017 Office Visit Family Practice Tish Garcia NP Vaginal dryness, menopausal (Primary Dx); Flu vaccine need; Need for pneumococcal vaccination; Need for shingles vaccine; Female stress incontinence after 02/03/2017 Immunizations Name Dates Previously Given Next Due Influenza <Unspecified> 05/03/2017 Influenza Vaccine 03/12/2015, 02/09/2015 (Deferred: Other - Patient feeling ill and weak/defer to next PCP visit), 02/07/2014, 12/30/2010, 01/03/2010, 03/03/2008 Influenza Vaccine, 05/07/2017 (Deferred: Patient already had this Seasonal, Injectable immunization) PCV 13 (Pnuemococcal 06/01/2017 Conjugated 13 Valent) PPD 06/20/2014 Tdap Tetanus, diphtheria, 01/03/2010 acellular pertussis Vaccine Family History Medical History Relation Name Comments Cancer Mother breast Relation Name Status Comments Mother Social History Tobacco Use Types Packs/Day Years Used Date Never Smoker Smokeless Tobacco: Never Used Tobacco Cessation: Counseling Given: No Alcohol Use Drinks/Week oz/Week Comments No Sex Assigned at Date Recorded Not on file Last Filed Vital Signs Vital Sign Reading Time Taken Blood Pressure 146/79 05/07/2017 8:39 AM RETAIL EXPERIENCE SPECIALIST Pulse 62 05/07/2017 8:39 AM RETAIL EXPERIENCE SPECIALIST Temperature 36.9 C (98.4 F) 05/07/2017 8:39 AM RETAIL EXPERIENCE SPECIALIST Respiratory Rate 18 05/07/2017 8:39 AM RETAIL EXPERIENCE SPECIALIST Oxygen Saturation - - Inhaled Oxygen - - Concentration Weight 71 kg (156 lb 9.6 oz) 05/07/2017 8:39 AM RETAIL EXPERIENCE SPECIALIST Height 149.9 cm (4' 11") 05/07/2017 8:39 AM RETAIL EXPERIENCE SPECIALIST Body Mass Index 31.63 05/07/2017 8:39 AM RETAIL EXPERIENCE SPECIALIST Plan of Treatment Health Maintenance Due Date Last Done Comments IMM Pneumococcal Age 66 02/12/2016 and Up Breast Cancer Scrn 2018 2017 (Previously completed - (Yearly) External), 03/14/2015, 03/20/2014, Additional history exists Colonoscopy 10yr 12/09/2025 12/10/2015 Results Not on fileafter 02/03/2017
--- OUTSIDE RECORDS SUMMARY | 2018-04-02 07:33 | XMS REPORT ---
Author Author Dereck Stone [facility] e[employer] Address Unknown Phone Unavailable Care Team Providers Care Childcare Director Name Role Phone Dereck Stone Unavailable Allergies, Adverse Reactions, Alerts Substance Reaction Event Type Humira Info Not Available Drug Allergy Enbrel Info Not Available Drug Allergy Problems Problem Type Condition Code Onset Dates Condition Status Assessment Long-term use of immunosuppressant medication Z79.899 Active Problem Osteopenia M85.80 Active Problem Shoulder pain, right M25.511 Active Problem Ankle pain, right M25.571 Active Assessment Rheumatoid arthritis M06.9 Active Problem Rheumatoid arthritis M06.9 Active Problem Long-term use of immunosuppressant medication Z79.899 Active Medications Medication Code System Code Instructions Start Date End Date Status Dosage Levothyroxine Sodium ND 34569282048 75 MCG Orally Once a day Active 1 tablet vitamin D NDC 0 800 IU po Once a day Active 1 tablet Sulfasalazine ND 14424046069 500 MG Orally bid Nov 03, 2017 Mar 03, 2018 Active 3 tablet Ibuprofen NDC 61041754218 250 MG Orally once a day Active 1 tablet Propranolol HCl NDC 60298789647 10 MG Orally Once a day Active 1 tablet on an empty stomach PredniSONE ND 88353245433 5 MG Orally Once a day October 14, 2017 Active 1 tab ORENCIA SQ NDC 0 125MG SUBCUTANEOUSLY ONCE A WEEK August 21, 2017 Active 125MG Medrol Dose Luis ND 77219039068 4mg Orally once a day Feb 02, 2018 Feb 08, 2018 Active as directed Primidone NDC 61586128109 50 MG Orally once a day Active 1 tablet Amlodipine Besylate NDC 73495842736 5 MG Orally Once a day Active 1 tablet Calcium NDC 0 1200 MG orally daily Active 1 tablet Leflunomide ND 18080069403 20MG Orally Once a day Feb 02, 2018 Active 1 tablet Vital Signs Date/Time: Feb 02, 2018 BMI 31.44 Index Weight 155.7 lbs Height 59 in Temperature 98.0 F Cardiac Monitoring Heart Rate 68 /min Blood Pressure Diastolic 80 mm Hg Blood Pressure Systolic 122 mm Hg Results No Known Results Summary Purpose eClinicalWorks Submission
--- OUTSIDE RECORDS SUMMARY | 2018-04-02 07:33 | XMS REPORT ---
Author Author [facility] Address Unknown Phone Unavailable Care Team Providers Care Information Systems Auditor Name Role Phone MERY RUVALCABA Unavailable Unavailable KARLA BRINK Unavailable Unavailable Problems This patient has no known problems. Allergies, Adverse Reactions, Alerts This patient has no known allergies or adverse reactions. Medications This patient has no known medications. Encounters Start Date/Time End Date/Time Encounter Type Admission Type Attending Clinicians Care Facility Care Department Encounter ID 2017-06-01 10:08:06 2017-06-01 10:08:06 Outpatient [facility] [id number] 2017-05-07 08:37:45 2017-05-07 08:37:45 Outpatient [facility] [id number] Results Test Description Test Time Test Comments Text Results Atomic Results Result Comments US ABDOMEN COMPLETE 2018-03-24 10:28:00 [place] [address] Patient Name: JEAN BLACKWELL MR #: [id number] : 1950 Age/Sex: 68/F Req #: [id number] Adm Physician: Ordered by: MERY RUVALCABA MD Report #: [id number] Location: US Room/Bed: Procedure: [id number] US/US ABDOMEN COMPLETE Exam Date: Exam Time: REPORT STATUS: Signed Abdominal ultrasound. History: Elevated liver function studies. Comparison: <None available>. Discussion: Transverse and longitudinal images of the abdomen were obtained demonstrating a liver of normal size with increased echogenicity measuring 12.2 cm in length. The portal vein is patent with hepatopetal flow and is within normal limits measuring 0.8 cm in diameter. The biliary tree is within normal limits with the common bile duct measuring 5 mm in diameter. The gallbladder has been removed. The kidneys are normal in size and echogenicity bilaterally without evidence of hydronephrosis, stones, or mass. The right kidney measures 10.7 x 4.7 x 5.0 cm and the left kidney measures 10.6 x 5.3 x 5.1 cm. The spleen is normal in size and appearance measuring 9.9 x 4.9 x 4.1 cm. The pancreatic head and body are visualized and are normal in appearance. The abdominal aorta is within normal limits and has a maximal measurement of 2.2 cm. There is no evidence of free fluid. IMPRESSION: Increased echogenicity of the liver without evidence of a mass. Signed by: Dr. Fernando Roy DO on 03/24/2018 10:32 AM Dictated By: FERNANDO ROY DO 1032 Transcribed By: JAMES on 03/24/18 103 COPY TO: MERY RUVALCABA MD HAND 3+ VIEWS LEFT [place] [address] Patient Name: JEAN BLACKWELL MR #: [id number] : 1950 Age/Sex: 67/F Req #: [id number] Adm Physician: Ordered by: KARLA BRINK MD Report #: [id number] Location: [facility] Room/Bed: Procedure: [id number] DX/HAND 3+ VIEWS LEFT Exam Date: 04/24/17 Exam Time: 1020 REPORT STATUS: Signed PROCEDURE: X-RAY LEFT HAND, THREE OR MORE VIEWS COMPARISON: None. INDICATIONS: LEFT HAND PAIN FROM FALL FINDINGS: 3 views of the left hand (PA, lateral, and oblique) There are no fractures, dislocations, lytic or blastic lesions. There are moderate degenerative changes at the DIP joints and at the basilar joint of the thumb. The bones are well-mineralized. The soft-tissues are unremarkable. CONCLUSION: Osteoarthritis. No fractures. Dictated by: Erickson Rader M.D. on 04/24/2017 at 12:39 Electronically approved by: Erickson Rader M.D. on 04/24/2017 at 12:39 Dictated By: ERICKSON RADER MD 1239 Transcribed By: KANE on 04/24/17 1239 COPY TO: KARLA BRINK MD
--- OUTSIDE RECORDS SUMMARY | 2018-04-02 07:33 | XMS REPORT ---
Author Author Dereck Stone Organization [employer] Address Unknown Phone Unavailable Care Team Providers Care Broacher Name Role Phone Dereck Stone CP Unavailable [...] NDC 0 125MG SUBCUTANEOUSLY ONCE A WEEK Nov 13, 2017 Active 125MG Results No Known Results Summary Purpose [employer] Submission
--- OUTSIDE RECORDS SUMMARY | 2018-04-02 07:33 | XMS REPORT ---
Author Author Dereck Stone Organization [employer] Address Unknown Phone Unavailable Care Team Providers Care Nursing Unit Manager Name Role Phone Dereck Stone CP Unavailable Allergies No Known Allergies Problems Problem Type Condition Code Onset Dates Condition Status Problem Osteopenia M85.80 Active Problem Shoulder pain, right M25.511 Active Problem Ankle pain, right M25.571 Active Problem Rheumatoid arthritis M06.9 Active Problem Long-term use of immunosuppressant medication Z79.899 Active Medications Medication Code System Code Instructions Start Date End Date Status Dosage Hydroxychloroquine Sulfate [facility] 96487465005 200 MG Orally twice a day Mar 05, 2018 June 03, 2018 Active 1 tablet with food or milk Medrol Dose Luis [facility] 61083909321 4mg Orally once a day Mar 04, 2018 Active as directed Results No Known Results Summary Purpose [employer] Submission
[2018-04-02 10:15] VITALS: BP 118/70
--- NOTE | 2018-04-02 10:21 | Operative Report ---
DATE OF PROCEDURE: April 02, 2018 REFERRING PHYSICIAN: Dr. Karla Brink PROCEDURE PERFORMED: Colonoscopy and polypectomy. INDICATIONS FOR COLONOSCOPY: Colorectal cancer screening. MEDICATION: Patient was done under MAC. Please see anesthesiologist's note. PROCEDURE: With the patient in the left lateral decubitus position, the flexible fiberoptic Olympus colonoscope was inserted into the rectum with ease and advanced all the way to the cecum. It was then withdrawn slowly. Mucosa overlying the cecum, ascending colon, transverse colon, and descending colon appeared to be within normal limits. Some diverticular disease was noted in the sigmoid colon. Four minute polyps were hot biopsied from the rectum. The scope was then retroflexed into the distal rectum and moderate size internal hemorrhoids were noted, none of which was actively bleeding. The scope was then straightened out. It was subsequently withdrawn. Patient tolerated the procedure well. IMPRESSION 1. Diverticulosis. 2. Rectal polyps times 4, hot biopsied. 3. Internal hemorrhoids, none actively bleeding. PLAN: Follow up histology. Initiate high-fiber and low-fat diet. Initiate high-fiber supplement. Patient might benefit from a followup colonoscopy in 3 to 5 years. Job#: [id number] RI cc:KARLA BRINK MD
== END | disposition home or self-care (01) ==
LOC: OR 07:29
PROVIDERS: ATTEND Internal Medicine Gastroenterology
DX: Z12.11 Encounter for screening for malignant neoplasm of colon (principal); K62.1 Rectal polyp; K57.30 Diverticulosis of large intestine without perforation or abscess without bleeding; K64.8 Other hemorrhoids; I10 Essential (primary) hypertension; M06.9 Rheumatoid arthritis, unspecified; E03.9 Hypothyroidism, unspecified; R79.9 Abnormal finding of blood chemistry, unspecified; Z01.810 Encounter for preprocedural cardiovascular examination; Z01.812 Encounter for preprocedural laboratory examination; Z68.30 Body mass index [BMI] 30.0-30.9, adult
CPT/HCPCS: 36415; 45384; 85025; 88305; 93005; J2001; J2250; 45378

== ENCOUNTER → 2018-06-25 | Outpatient (CLI) | payer MEDICARE ==
[~2018-06-25] MED LIST changes: -LIDOCAINE HCL 2% LOCAL INJ 5 ML SDV VIAL INJ ONE; -MIDAZOLAM HCL 2 MG/2 ML VIAL ONE; -PROPOFOL IV EMULSION 10 MG/ML 50 ML VIAL ONE
--- NOTE | 2018-06-25 11:55 | Diagnostic Imaging Report ---
EXAMINATION: Bone mineral density study. COMPARISON: None. HISTORY: Menopausal state DISCUSSION: Evaluation of the left hip and lumbar spine was performed utilizing a DEXA Hologic bone densitometer. The study is technically adequate. The left hip total bone mineral density is 0.785 gm/cm2, the T-score is -1.3, and the Z-score is -0.1. The left hip femoral neck bone mineral density is 0.700 gm/cm2, the T-score is -1.5, and the Z-score is 0.1. The lumbar spine total bone mineral density is 0.902 gm/cm2, the T-score is -1.3, and the Z-score is 0.6. IMPRESSION: 1. WHO classification of osteopenia for the left hip with increased risk of fracture. 10 year major osteoporotic fracture risk 10% 2. WHO classification of osteopenia for the lumbar spine with increased` risk of fracture. The patient's fracture risk is compared to an age-matched control. Medical evaluation for secondary causes of low bone bone mineral density may be appropriate. Correlate clinically for the necessity and timing of the next bone mineral density study. National Osteoporosis Foundation recommendations: Initiate therapy to reduce fracture risk in postmenopausal women with -BMD t-scores below -2.0 by central DXA with no risk factors -BMD t-scores below -1.5 by central DXA with one or more risk factors (first deg relative with hip fracture, prior personal fracture, low body weight, smoking) -A prior vertebral or hip fracture AACE (Clinical Endocrinology) recommends treating the following: Postmenopausal women who have osteoporosis as diagnosed by fragility fractures or t scores -2.5 or below Postmenopausal women who have risk factors (including fh of hip fracture, low body weight, smoking, risk of falling, high bone turnover, advancing age) and borderline low BMD T scores of -1.5 or below Adequate intake of calcium (at least 1200mg/day) and vitamin D (400-800 IU/day). Regular weight bearing and muscle - strengthening exercises Avoid smoking and excessive alcohol Signed by: Dr. Pastor Mcdaniels M.D. on 06/25/2018 11:51 AM
--- NOTE | 2018-06-25 13:25 | Diagnostic Imaging Report ---
TECHNIQUE: Magnetic resonance imaging of the RIGHT KNEE was performed WITHOUT injected contrast. HISTORY: Right knee pain COMPARISON: None available. FINDINGS: LIGAMENTS AND TENDONS: ACL: Mucoid degeneration PCL: Intact Collateral ligaments: Intact Iliotibial band: Unremarkable Popliteal tendon: Intact Extensor mechanism: Intact JOINT: Menisci: Medial: Attenuation of the free margin with horizontal tear of the posterior body and horn extending to the tibial articular surface. Lateral: Intact Articular Cartilage: Medial Compartment: Partial-thickness cartilage loss, high-grade at the medial joint line. Lateral Compartment: Partial-thickness cartilage loss Patellofemoral Compartment: Partial-thickness cartilage loss Joint Fluid: Small joint effusion. BONE: No focal or infiltrative bone marrow replacing abnormality. No acute fracture. SOFT TISSUES: Otherwise, unremarkable. IMPRESSION: Medial meniscus horizontal tear posterior body and horn with partial thickness cartilage loss Signed by: Dr. Henry Eid M.D. on 06/25/2018 1:21 PM
== END ==
LOC: MAMMO 10:24
PROVIDERS: ATTEND Internal Medicine
DX: Z12.31 Encounter for screening mammogram for malignant neoplasm of breast (principal); Z13.820 Encounter for screening for osteoporosis; Z78.0 Asymptomatic menopausal state; M25.561 Pain in right knee
CPT/HCPCS: 77067; 77080

== ENCOUNTER → 2018-07-22 | Outpatient (CLI) | payer MEDICARE ==
--- NOTE | 2018-07-22 14:41 | Diagnostic Imaging Report ---
EXAMINATION: CHEST 2 VIEWS INDICATION: Pre-op radiograph, knee surgery. COMPARISON: None FINDINGS: TUBES and LINES: None. LUNGS: Lungs are moderately inflated. Lungs are clear. There is no evidence of pneumonia or pulmonary edema. PLEURA: No pleural effusion or pneumothorax. HEART AND MEDIASTINUM: The cardiomediastinal silhouette is unremarkable. BONES AND SOFT TISSUES: No acute osseous abnormality. UPPER ABDOMEN: No free air under the diaphragm. There are cholecystectomy clips. IMPRESSION: No acute radiographic abnormality. Signed by: Dr. Maurilio Vences MD on 07/22/2018 2:38 PM
== END ==
LOC: RAD 13:34
PROVIDERS: ATTEND Internal Medicine
DX: Z01.818 Encounter for other preprocedural examination (principal)
CPT/HCPCS: 71046

== ENCOUNTER 2018-08-16 06:48 | Observation (INO) | payer MEDICARE ==
[2018-08-13 11:26] LABS: BASOPHILS % 0.5 % (0.0-1.0); EOSINOPHILS # (AUTO) 0.1 (0.0-0.4); EOSINOPHILS % 1.7 % (0.0-6.0); HEMATOCRIT 44.4 % (34.2-44.1); HEMOGLOBIN 14.1 g/dL (12.0-16.0); LYMPHOCYTES # (AUTO) 1.8 (1.0-3.2); LYMPHOCYTES % 30.4 % (18.0-39.1); MEAN CORPUSCULAR HEMOGLOBIN 31.1 pg (28-32); MEAN CORPUSCULAR HGB CONC 31.8 g/dL (31-35); MONOCYTES # (AUTO) 0.5 (0.2-0.8); MONOCYTES % 9.3 % (4.4-11.3); NEUTROPHILS # (AUTO) 3.3 (2.1-6.9); NEUTROPHILS % 57.8 % (38.7-80.0); PLATELET COUNT 133 x10e3/uL (140-360); RED BLOOD COUNT 4.53 x10e6/uL (3.6-5.1); RED CELL DISTRIBUTION WIDTH 13.5 % (11.7-14.4)
--- NOTE | 2018-08-13 12:06 | Diagnostic Imaging Report ---
EXAMINATION: CHEST 2 VIEWS INDICATION: Right knee surgery. Preop ^PREOP ^[id number] ^[id number] COMPARISON: 07/22/2018 FINDINGS: TUBES and LINES: None. LUNGS: Lungs are well inflated. Lungs are clear. There is no evidence of pneumonia or pulmonary edema. PLEURA: No pleural effusion or pneumothorax. HEART AND MEDIASTINUM: The cardiomediastinal silhouette is unremarkable. BONES AND SOFT TISSUES: No acute osseous lesion. Soft tissues are unremarkable. UPPER ABDOMEN: No free air under the diaphragm. IMPRESSION: No acute thoracic abnormality. Signed by: Dr. Emiliano Jordan M.D. on 08/13/2018 12:03 PM
[~2018-08-16] VITALS: Ht 152.4 cm; Wt 72.6 kg
[~2018-08-16 06:48] MED LIST changes: +ALENDRONATE SOD70 MG PO; +HYDROXYCHLOROQ200 MG PO; +LEFLUNOMIDE20 MG PO; -ORENCIA125 MG/1 M; +ORENCIA125 MG/1 M SC; +OS-CAL 500+D T1 EACH PO; +PREDNISONE5 MG PO; +ROPIVACAINE 246.25 MG, EPINEPHRINE HCL 1:1000 1ML 0.5 MG, CLONIDINE HCL 0.08 MG, KETORO... INJ ONE
--- OUTSIDE RECORDS SUMMARY | 2018-08-16 06:54 | XMS REPORT | Clinical Summary ---
Author Author [facility] Organization [facility] Address Unknown Phone Unavailable Care Team Providers Care Physical Director Name Role Phone Gama Cash MD PCP Allergies Not on File Medications Not on file Active Problems Not on file Encounters Care Team Description Date Type Specialty ThursdayLanette MD Parkinson disease 11/26/2017 Hospital Radiology Encounter ThursdayLanette MD Parkinson disease 11/26/2017 Hospital Radiology Encounter ThursdayLanette MD Parkinson disease (Primary Dx) 11/17/2017 Transcribe Radiology Orders after 08/15/2017 Social History Date Tobacco Use Types Packs/Day [...] 2001 COLON CANCER SCREENING 2001 SHINGLES VACCINES (#1) 2001 65+ PNEUMOCOCCAL VACCINE 02/12/2016 06/01/2017 (2 of 2 - PPSV23) PNEUMOCOCCAL 02/12/2016 POLYSACCHARIDE VACCINE AGE 65 AND OVER INFLUENZA VACCINE 10/28/2018 05/03/2017 Procedures Comments Procedure Name Priority Date/Time Associated Diagnosis NM BRAIN SPECT W I 123 Routine 11/26/2017 Parkinson disease DATSCAN 2:05 PM CDT after 08/15/2017 Results * NM Brain Spect W I 123 Datscan (11/26/2017 2:05 PM CDT) Specimen Narrative Performed At PROCEDURE:NM BRAIN SPECT W I 123 DATSCAN HM RADIANT INDICATION:Parkinson's disease. TECHNIQUE: The patient was [...] MRI of the brain, as clinically appropriate. [facility]-[id number] Procedure Note Interface, Radiology Results - 11/26/2017 7:13 PM CDT PROCEDURE: NM [...] MRI of the brain, as clinically appropriate. [facility]-[id number] Performing Organization Address City/State/Zipcode Phone Number [facility] [address] [place] [address] after 08/15/2017 Insurance Type Payer Benefit Subscriber ID Effective Phone Address Plan / Dates Group [facility] MEDICARE AARP xxxxxxxxx [id number] MEDICARE resent COMPLETE [facility] Advance Directives Patient has advance care planning documents on file. For more information, ingrid e contact: Christiano Ellison [address] [place] [address]
--- OUTSIDE RECORDS SUMMARY | 2018-08-16 06:55 | XMS REPORT | Continuity of Care Document ---
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 Active 07/05/2015 05/05/2018 [facility] Chronic disease anemia Active 07/03/2015 05/05/2018 [facility] Osteoarthritis of right shoulder Active 07/03/2015 05/05/2018 [facility] Pain in joint, shoulder region Active 08/31/2014 05/05/2018 [facility] Depressive disorder, not elsewhere classified Active 04/21/2014 05/05/2018 [facility] Cupping of optic disc Active 01/18/2014 05/05/2018 [facility] NS Active 01/18/2014 05/05/2018 [facility] Hyperopia with astigmatism and presbyopia Active 01/18/2014 05/05/2018 [facility] Hypothyroidism Active 01/02/2014 05/05/2018 [facility] Inflammatory arthritis Active 06/23/2013 05/05/2018 [facility] Erosive osteoarthritis Active 06/23/2013 05/05/2018 [facility] Tremor Active 12/07/2009 05/05/2018 [facility] Cholecystitis Active 08/10/2009 05/05/2018 [facility] Abnormal pap Active 12/06/2007 05/05/2018 [facility] Long-term use of immunosuppressant medication Active Problem 06/24/2018 Douglas Barrientos Elevated LFTs Active Diagnosis 2018 [facility] Barrientos Osteopenia Active Problem 06/24/2018 [facility] Barrientos Shoulder pain, right Active Problem 06/24/2018 [facility] Barrientos Ankle pain, right Active Problem 06/24/2018 Douglas Barrientos Rheumatoid arthritis Active Diagnosis 06/24/2018 Douglas Barrientos Knee pain, right Active Diagnosis 06/24/2018 Douglas Barrientos Acute streptococcal pharyngitis Active 05/05/2018 [facility] Immunization due Active 05/05/2018 [facility] Vaginal dryness, menopausal Active 05/05/2018 [facility] Flu vaccine need Active 05/05/2018 [facility] Need for pneumococcal vaccination Active 05/05/2018 [facility] Need for shingles vaccine Active 05/05/2018 [facility] Female stress incontinence Active 05/05/2018 [facility] Medications Medication Details Route Status Patient Instructions Ordering Provider Order Date Source Medrol Dose Luis as directed Orally Active 4mg Orally once a day Chase 06/09/2018 Douglas Barrientos Alendronate Sodium 1 tablet Orally Active 70 MG Orally qwkly Chase 05/05/2018 Douglas Barrientos Hydroxychloroquine Sulfate 1 tablet with food or milk Orally Active 200 MG Orally twice a day 03/05/2018 Douglas Barrientos Medrol Dose Luis as directed Orally Active 4mg Orally once a day 03/04/2018 Douglas Barrientos Leflunomide 1 tablet Orally Active 20MG Orally Once a day 02/02/2018 Douglas Barrientos Medrol Dose Luis as directed Orally Active 4mg Orally once a day 02/02/2018 Douglas Barrientos Leflunomide take one tablet by mouth once daily for 30 days NA Active 20MG 12/16/2017 Douglas Barrientos ORENCIA SQ 125MG SUBCUTANEOUSLY Active 125MG SUBCUTANEOUSLY ONCE A WEEK 11/13/2017 Douglas Barrientos Sulfasalazine 3 tablet Orally Active 500 MG Orally bid 11/03/2017 Douglas Barrientos PredniSONE 1 tab Orally Active 5 MG Orally Once a day 10/14/2017 Douglas Barrientos PredniSONE 1 tab Orally Active 5 MG Orally Once a day 10/14/2017 Douglas Barrientos ORENCIA SQ 125MG SUBCUTANEOUSLY Active 125MG SUBCUTANEOUSLY ONCE A WEEK 08/21/2017 Douglas Barrientos ORENCIA SQ 125MG SUBCUTANEOUSLY Active 125MG SUBCUTANEOUSLY ONCE A WEEK oya 05/18/2017 Douglas Barrientos PredniSONE 1 tab Orally Active 5 MG Orally Once a day oya 05/18/2017 Douglas Barrientos Premarin 0.625 Mg/Gram Vaginal Cream Insert 0.5 g vaginally 3 times weekly. Vaginal Active 05/08/2017 [facility] conjugated estrogens (PREMARIN) 0.625 mg/gram vaginal cream Insert 0.5 g vaginally 3 times weekly. Vaginal Active 05/08/2017 [facility] Dorzolamide 22.3 Mg-Timolol 6.8 Mg/Ml Eye Drops 1 Drop 2 times daily. No Longer Active 05/07/2017 [facility] dorzolamide-timolol (COSOPT) 2-0.5 % ophthalmic solution 1 Drop 2 times daily. No Longer Active 05/07/2017 [facility] Orencia 125 Mg/Ml Subcutaneous Syringe Active 04/27/2017 [facility] Prednisone 5 Mg Tablet Active 04/27/2017 [facility] ORENCIA 125 mg/mL Syrg Active 04/27/2017 [facility] predniSONE (DELTASONE) 5 mg tablet Active 04/27/2017 [facility] Leflunomide 20 Mg Tablet Active 04/25/2017 [facility] leflunomide (ARAVA) 20 mg tablet Active 04/25/2017 [facility] Amlodipine 5 Mg Tablet Active 04/23/2017 [facility] Meloxicam 7.5 Mg Tablet Active 04/23/2017 [facility] amLODIPine (NORVASC) 5 mg tablet Active 04/23/2017 [facility] Meloxicam 7.5 mg tablet Active 04/23/2017 [facility] Ciprodex 0.3 %-0.1 % Ear Drops,Suspension Active 04/15/2017 [facility] CIPRODEX 0.3-0.1 % otic suspension Active 04/15/2017 [facility] Leflunomide 1 tablet Orally Active 20 MG Orally Once a day Chase 02/10/2017 [facility] Besivance 0.6 % Eye Drops,Suspension Active 02/10/2017 [facility] BESIVANCE 0.6 % ophthalmic suspension Active 02/10/2017 [facility] ORENCIA SQ 125MG SUBCUTANEOUSLY Active 125MG SUBCUTANEOUSLY [...] as needed for Pain. Oral Active 06/02/2016 [facility] traMADol (ULTRAM) 50 mg tablet Take 1 tablet by mouth every 6 hours as needed for Pain. Oral Active 06/02/2016 [facility] Levothyroxine 75 McG Tablet Take 1 tablet by mouth daily. Oral Active 05/13/2016 [facility] levothyroxine (SYNTHROID) 75 mcg tablet Take 1 tablet by mouth daily. Oral Active 05/13/2016 [facility] etanercept (ENBREL) 50 mg/mL (0.98 mL) injection Inject 0.98 mL under the skin weekly Needs to make appt to see rheum. Subcutaneous No Longer Active 01/29/2016 [facility] etanercept (ENBREL) 50 mg/mL (0.98 mL) injection Inject 0.98 mL under the skin weekly Needs to make appt to see rheum. Subcutaneous No Longer Active 01/29/2016 [facility] Primidone 50 Mg Tablet Take 1 tablet by mouth 3 times daily. Oral Active 01/14/2016 [facility] primidone (MYSOLINE) 50 mg tablet Take 1 tablet by mouth 3 times daily. Oral Active 01/14/2016 [facility] Lorazepam 1 Mg Tablet Ativan 1 Mg Tablet Take 30 minutes prior to MRI, may repeat in 20 minutes if still having anxiety. No Longer Active 08/06/2015 [facility] LORazepam (ATIVAN) 1 mg tablet Take 30 minutes prior to MRI, may repeat in 20 minutes if still having anxiety. No Longer Active 08/06/2015 [facility] Cetirizine 10 Mg Tablet Zyrtec 10 Mg Tablet Take 1 tablet by mouth daily. Oral No Longer Active 07/09/2015 [facility] cetirizine (ZYRTEC) 10 mg tablet Take 1 tablet by mouth daily. Oral No Longer Active 07/09/2015 [facility] Methotrexate Sodium 2.5 Mg Tablet Take 8 tablets by mouth weekly. Oral No Longer Active 07/03/2015 [facility] methotrexate (TREXALL) 2.5 mg tablet Take 8 tablets by mouth weekly. Oral No Longer Active 07/03/2015 [facility] Folic Acid 1 Mg Tablet Take 1 tablet by mouth daily. Oral No Longer Active 05/10/2015 [facility] folic acid (FOLVITE) 1 mg tablet Take 1 tablet by mouth daily. Oral No Longer Active 05/10/2015 [facility] Promethazine 25 Mg Tablet Take 1 tablet by mouth every 6 hours as needed for Nausea or Vomiting. Oral No Longer Active 03/12/2015 [facility] Dexilant 60 Mg Capsule, Delayed Release Take 1 capsule by mouth daily. Oral No Longer Active 03/12/2015 [facility] promethazine (PHENERGAN) 25 mg tablet Take 1 tablet by mouth every 6 hours as needed for Nausea or Vomiting. Oral No Longer Active 03/12/2015 [facility] dexlansoprazole (DEXILANT) 60 mg delayed release capsule Take 1 capsule by mouth daily. Oral No Longer Active 03/12/2015 [facility] Methotrexate Sodium 2.5 Mg Tablet Take 8 tablets by mouth weekly. Oral No Longer Active 01/11/2015 [facility] methotrexate (TREXALL) 2.5 mg tablet Take 8 tablets by mouth weekly. Oral No Longer Active 01/11/2015 [facility] Escitalopram 10 Mg Tablet Take 1 and 1/2 tablets by mouth daily. Oral No Longer Active 12/29/2014 [facility] escitalopram oxalate (LEXAPRO) 10 mg tablet Take 1 and 1/2 tablets by mouth daily. Oral No Longer Active 12/29/2014 [facility] Diclofenac Sodium 75 Mg Tablet,Delayed Release Take 1 tablet by mouth daily. Oral No Longer Active 12/06/2014 [facility] diclofenac sodium 75 mg delayed release tablet Take 1 tablet by mouth daily. Oral No Longer Active 12/06/2014 [facility] Trazodone 50 Mg Tablet Take 1 tablet by mouth nightly at bedtime as needed for Sleep. Oral Active 10/06/2014 [facility] traZODone (DESYREL) 50 mg tablet Take 1 tablet by mouth nightly at bedtime as needed for Sleep. Oral Active 10/06/2014 [facility] Ergocalciferol (Vitamin D2) 50,000 Unit Capsule Vitamin D2 50,000 Unit Capsule Take 1 capsule by mouth weekly. Oral No Longer Active 08/31/2014 [facility] ergocalciferol (VITAMIN D2) 50,000 unit capsule Take 1 capsule by mouth weekly. Oral No Longer Active 08/31/2014 [facility] Vesicare 5 Mg Tablet Take 1 tablet by mouth daily. Oral No Longer Active 08/07/2014 [facility] Hydrocortisone 0.5 % Topical Ointment Apply to affected area 2 times daily. NONFORMULARY Topical No Longer Active 08/07/2014 [facility] solifenacin (VESICARE) 5 mg tablet Take 1 tablet by mouth daily. Oral No Longer Active 08/07/2014 [facility] hydrocortsione 0.5 % ointment Apply to affected area 2 times daily. NONFORMULARY Topical No Longer Active 08/07/2014 [facility] Methocarbamol 750 Mg Tablet Take 1 tablet by mouth 4 times daily as needed for Other (muscular pains). Oral No Longer Active 06/01/2014 [facility] methocarbamol (ROBAXIN) 750 mg tablet Take 1 tablet by mouth 4 times daily as needed for Other (muscular pains). Oral No Longer Active 06/01/2014 [facility] Premarin 0.625 Mg/Gram Vaginal Cream Insert 0.5 g vaginally 3 times weekly. Vaginal No Longer Active 05/22/2014 [facility] Vesicare 5 Mg Tablet Take 1 tablet by mouth daily. Oral No Longer Active 05/22/2014 [facility] conjugated estrogens (PREMARIN) 0.625 mg/gram vaginal cream Insert 0.5 g vaginally 3 times weekly. Vaginal No Longer Active 05/22/2014 [facility] solifenacin (VESICARE) 5 mg tablet Take 1 tablet by mouth daily. Oral No Longer Active 05/22/2014 [facility] Folic Acid 1 Mg Tablet Take 1 tablet by mouth daily. Oral No Longer Active 03/20/2014 [facility] folic acid (FOLVITE) 1 mg tablet Take 1 tablet by mouth daily. Oral No Longer Active 03/20/2014 [facility] Loratadine 10 Mg Tablet Take 1 tablet by mouth daily Oral No Longer Active 05/09/2013 [facility] loratadine (CLARITIN) 10 mg tablet Take 1 tablet by mouth daily Oral No Longer Active 05/09/2013 [facility] Hydrocortisone 1 % Topical Ointment Apply to affected area daily. apply small amount to inner ear canal x 3 days for itching ear Topical No Longer Active 11/04/2010 [facility] hydrocortisone 1 % ointment Apply to affected area daily. apply small amount to inner ear canal x 3 days for itching ear Topical No Longer Active 11/04/2010 [facility] Atrovent 0.03 % Nasal [place] inhale 2 sprays in each nostril by intranasal route 2-3 times daily Nasal No Longer Active 04/25/2009 [facility] ATROVENT 0.03 % NASAL SPRAY inhale 2 sprays in each nostril by intranasal route 2-3 times daily Nasal No Longer Active 04/25/2009 [facility] Calcium 1 tablet orally Active 1200 MG orally daily Chase Barrientos Ibuprofen 1 tablet Orally Active 250 MG Orally once a day [facility] Douglas Barrientos Levothyroxine Sodium 1 tablet Orally Active 75 MCG Orally Once a day [facility] Douglas Barrientos vitamin D 1 tablet po Active 800 IU po Once a day [facility] Douglas Barrientos Primidone 1 tablet Orally Active 50 MG Orally once a day Chase Douglas Barrientos PredniSONE 1 tab Orally Active 5 MG Orally Once a day Chase Douglas Barrientos Leflunomide take one tablet by mouth once daily for 30 days NA Active 20MG [facility] Douglas Barrientos ORENCIA SQ 125MG SUBCUTANEOUSLY Active 125MG SUBCUTANEOUSLY ONCE A WEEK [facility] Douglas Barrientos Amlodipine Besylate 1 tablet Orally Active 5 MG Orally Once a day Chase Douglas Barrientos Ropinirole HCl 1 tablet Orally Active 5 MG Orally Three times a day [facility] Douglas Barrientos Propranolol HCl 1 tablet on an empty stomach Orally Active 10 MG Orally Once a day [facility] Douglas Barrientos Allergies, Adverse Reactions, Alerts Substance Category Reaction Severity Reaction type Status Date Reported Comments Source Oxybutynin Propensity to adverse reactions to drug Active 05/22/2014 [facility] Humira Adverse Reaction Info Not Available Adverse Reaction Active 06/21/2018 [facility] Enbrel Adverse Reaction Info Not Available Adverse Reaction Active 06/21/2018 [facility] Barrientos Immunizations Immunization Date Given Site Status Last Updated Comments Source PCV 13 (Pnuemococcal Conjugated 13 Valent) 06/01/2017 completed [facility] Influenza Vaccine, Seasonal, Injectable 05/07/2017 Not Given Deferred: Patient already had this immunization [facility] Influenza <Unspecified> 05/03/2017 completed [facility] Influenza Vaccine 03/12/2015 completed [facility] Influenza Vaccine 02/09/2015 Not Given Deferred: Other - Patient feeling ill and weak/defer to next PCP visit [facility] PPD 06/20/2014 completed [facility] Ketorolac 30mg/1ml Inj (x ) 06/01/2014 completed [facility] Influenza Vaccine 02/07/2014 completed [facility] Influenza Vaccine 12/30/2010 completed [facility] Ceftriazone 500mg Injection 10/30/2010 completed [facility] Influenza Vaccine 01/03/2010 completed [facility] Tdap Tetanus, diphtheria, acellular pertussis Vaccine 01/03/2010 completed [facility] Influenza Vaccine 03/03/2008 completed [facility] Results Order Name Results Value Reference Range Date Interpretation Comments Source Vital Signs Vital Sign Value Date Comments Source Weight 153 06/21/2018 [facility] Height 59 06/21/2018 [facility] Barrientos Temperature Oral (F) 98.0 F 06/21/2018 [facility] Barrientos Heart Rate 76 06/21/2018 [facility] Barrientos Diastolic (mm Hg) 78 06/21/2018 Douglas Barrientos Systolic (mm Hg) 110 06/21/2018 [facility] Barrientos Weight 151.3 06/09/2018 Douglas Barrientos Height 59 06/09/2018 [facility] Barrientos Temperature Oral (F) 97.4 F 06/09/2018 [facility] Barrientos Heart Rate 60 06/09/2018 Douglas Barrientos Diastolic (mm Hg) 84 06/09/2018 [facility] Barrientos Systolic (mm Hg) 134 06/09/2018 [facility] Barrientos Weight 155.7 02/02/2018 Douglas Barrientos Height 59 [...] Douglas Barrientos Systolic (mm Hg) 146 05/07/2017 [facility] Diastolic (mm Hg) 79 05/07/2017 [facility] Heart Rate 62 05/07/2017 [facility] Temperature Oral (F) 36.89 Carolyn 05/07/2017 [facility] Respitory Rate 18 05/07/2017 [facility] Height 149.9 cm 05/07/2017 [facility] Weight 71.033 05/07/2017 [facility] BMI Calculated 31.63 05/07/2017 [facility] Weight 157.2 02/10/2017 Douglas Barrientos Height 59 02/10/2017 Douglas Barrientos Temperature Oral (F) 98.8 F 02/10/2017 Douglas Barrientos Heart Rate 64 02/10/2017 Douglas Barrientos Diastolic (mm Hg) 80 02/10/2017 Douglas Barrientos Systolic (mm Hg) 100 02/10/2017 Douglas Barrientos Encounters Location Location Details Encounter Type Encounter Number Reason For Visit Attending Provider ADM Date DC Date Status Source Family Practice [place] Office Visit [id number] Tish Garcia PROFESSOR OF COUNSELING 05/07/2017 05/07/2017 [facility] [place] Nurse Only [id number] Tish Garcia PROFESSOR OF COUNSELING 06/01/2017 06/01/2017 [facility] Procedures Procedure Code Date Perfomer Comments Source
--- OUTSIDE RECORDS SUMMARY | 2018-08-16 06:55 | XMS REPORT | Clinical Summary ---
Author Author [facility] Organization [facility] Address Unknown Phone Unavailable Care Team Providers Care Water Purifier Operator Name Role Phone Annette Christie MD PCP Allergies Comments Active Allergy Reactions Severity Noted Date Oxybutynin 05/22/2014 Medications End Date Status Medication Sig Dispensed Refills Start Date Active traZODone (DESYREL) 50 mg Take 1 tablet 30 tablet 3 tabletIndications: by mouth 5 Depression nightly at bedtime as needed for Sleep. Active primidone (MYSOLINE) 50 Take 1 tablet 60 tablet 11 mg tabletIndications: by mouth 3 6 Tremor times daily. Active levothyroxine (SYNTHROID) Take 1 tablet 90 tablet 0 75 mcg tabletIndications: by mouth 7 Hypothyroidism, adult daily. Active traMADol (ULTRAM) 50 mg Take 1 tablet 60 tablet 2 tabletIndications: by mouth 7 Erosive osteoarthritis every 6 hours as needed for Pain. Active ORENCIA 125 mg/mL Syrg 0 8 Active amLODIPine (NORVASC) 5 mg 0 tablet 8 Active BESIVANCE 0.6 % 0 ophthalmic suspension 7 Active CIPRODEX 0.3-0.1 % otic 0 suspension 8 Active leflunomide (ARAVA) 20 mg 0 tablet 8 Active Meloxicam 7.5 mg tablet 0 8 Active predniSONE (DELTASONE) 5 0 mg tablet 8 Active conjugated estrogens Insert 0.5 g 30 g 3 (PREMARIN) 0.625 mg/gram vaginally 3 8 vaginal creamIndications: times weekly. Female stress incontinence 05/07/2017 Discontinued ATROVENT 0.03 % NASAL inhale 2 30ml 0 SPRAYIndications: URI, sprays in 0 acute, Acute sinusitis, each nostril unspecified by intranasal route 2-3 times daily 05/07/2017 Discontinued hydrocortisone 1 % Apply to 30 g 0 ointmentIndications: Ear affected area 1 itching daily. apply small amount to inner ear canal x 3 days for itching ear 05/07/2017 Discontinued dorzolamide-timolol 1 Drop 2 0 (COSOPT) 2-0.5 % times daily. ophthalmic solution 05/07/2017 Discontinued loratadine (CLARITIN) 10 Take 1 tablet 90 tablet 2 mg tabletIndications: by mouth 4 Allergic rhinosinusitis daily 05/07/2017 Discontinued folic acid (FOLVITE) 1 mg Take 1 tablet 30 tablet 5 tabletIndications: by mouth 4 Inflammatory arthritis daily. 05/07/2017 Discontinued conjugated estrogens Insert 0.5 g 30 g 3 (PREMARIN) 0.625 mg/gram vaginally 3 5 vaginal creamIndications: times weekly. Female stress incontinence 05/07/2017 Discontinued solifenacin (VESICARE) 5 Take 1 tablet 30 tablet 3 mg tabletIndications: by mouth 5 Female stress daily. incontinence 05/07/2017 Discontinued methocarbamol (ROBAXIN) Take 1 tablet 360 tablet 2 750 mg tabletIndications: by mouth 4 5 Osteoarthritis times daily as needed for Other (muscular pains). 05/07/2017 Discontinued solifenacin (VESICARE) 5 Take 1 tablet 30 tablet 11 mg tabletIndications: by mouth 5 Urinary incontinence daily. 05/07/2017 Discontinued hydrocortsione 0.5 % Apply to 30 g 0 ointmentIndications: affected area 5 Itching 2 times daily. NONFORMULARY 05/07/2017 Discontinued ergocalciferol (VITAMIN Take 1 12 capsule 3 D2) 50,000 unit capsule by 5 capsuleIndications: mouth weekly. Vitamin D deficiency 05/07/2017 Discontinued diclofenac sodium 75 mg Take 1 tablet 30 tablet 0 delayed release by mouth 5 tabletIndications: TMJ daily. arthralgia 05/07/2017 Discontinued escitalopram oxalate Take 1 and 45 tablet 3 (LEXAPRO) 10 mg 1/2 tablets 5 tabletIndications: by mouth Depression daily. 05/07/2017 Discontinued methotrexate (TREXALL) Take 8 32 tablet 4 2.5 mg tabletIndications: tablets by 5 Inflammatory arthritis mouth weekly. 05/07/2017 Discontinued promethazine (PHENERGAN) Take 1 tablet 30 tablet 0 25 mg tabletIndications: by mouth 5 Nausea every 6 hours as needed for Nausea or Vomiting. 05/07/2017 Discontinued dexlansoprazole Take 1 90 capsule 1 (DEXILANT) 60 mg delayed capsule by 5 release mouth daily. capsuleIndications: Nausea 05/07/2017 Discontinued folic acid (FOLVITE) 1 mg Take 1 tablet 90 tablet 1 tabletIndications: Folic by mouth 6 acid deficiency daily. 05/07/2017 Discontinued methotrexate (TREXALL) Take 8 32 tablet 5 2.5 mg tabletIndications: tablets by 6 Inflammatory arthritis mouth weekly. 05/07/2017 Discontinued cetirizine (ZYRTEC) 10 mg Take 1 tablet 90 tablet 2 tabletIndications: by mouth 6 Allergic rhinitis, daily. unspecified allergic rhinitis type 05/07/2017 Discontinued LORazepam (ATIVAN) 1 mg Take 30 2 tablet 0 tabletIndications: Pain minutes prior 6 in joint of right to MRI, may shoulder repeat in 20 minutes if still having anxiety. 05/07/2017 Discontinued etanercept (ENBREL) 50 Inject 0.98 4 Syringe 1 mg/mL (0.98 mL) mL under the 6 injectionIndications: skin weekly Inflammatory arthritis Needs to make appt to see rheum. Active Problems Problem Noted Date Chronic right [...] Abnormal pap 12/06/2007 Acute streptococcal pharyngitis Encounters Care Team Description Date Type Specialty Tish Garcia NP Gandara, Larisa, MAXINE Immunization due (Primary Dx) 06/01/2017 Nurse Only Tish Garcia NP Vaginal dryness, menopausal (Primary Dx); Flu vaccine need; Need for pneumococcal vaccination; Need for shingles vaccine; Female stress incontinence 05/07/2017 Office Visit Family Practice after 05/04/2017 Immunizations Name Dates Previously Given Next Due Ceftriazone 500mg 10/30/2010 Injection Influenza <Unspecified> 05/03/2017 Influenza Vaccine 03/12/2015, 02/09/2015 (Deferred: Other - Patient feeling ill and weak/defer to next PCP visit), 02/07/2014, 12/30/2010, 01/03/2010, 03/03/2008 Influenza Vaccine, 05/07/2017 (Deferred: Patient already had this Seasonal, Injectable immunization) Ketorolac 30mg/1ml Inj 06/01/2014 (x ) PCV 13 (Pnuemococcal 06/01/2017 Conjugated 13 Valent) PPD 06/20/2014 Tdap Tetanus, diphtheria, 01/03/2010 acellular pertussis Vaccine Family History Medical History Relation Name Comments Cancer Mother breast Relation Name Status Comments Mother Social History Date Tobacco Use Types Packs/Day Years Used Never Smoker Smokeless Tobacco: Never Used Tobacco Cessation: Counseling Given: No Alcohol Use Drinks/Week oz/Week Comments No Sex Assigned at Date Recorded Not on file Industry Job Start Date Occupation Not on file Not on file Not on file Travel End Travel History Travel Start No recent travel history available. Last Filed Vital Signs Time Taken Vital Sign Reading 05/07/2017 8:39 AM [employer] Blood Pressure 146/79 05/07/2017 8:39 AM [employer] Pulse 62 05/07/2017 8:39 AM [employer] Temperature 36.9 C (98.4 F) 05/07/2017 8:39 AM [employer] Respiratory Rate 18 - Oxygen Saturation - - Inhaled Oxygen - Concentration 05/07/2017 8:39 AM [employer] Weight 71 kg (156 lb 9.6 oz) 05/07/2017 8:39 AM [employer] Height 149.9 cm (4' 11") 05/07/2017 8:39 AM [employer] Body Mass Index 31.63 Plan of Treatment Health Maintenance Due Date Last Done Comments IMM Pneumococcal Age 66 02/12/2016 and Up Breast Cancer Scrn 2018 2017 (Previously completed - (Yearly) External), 03/14/2015, 03/20/2014, Additional history exists Colonoscopy 10yr 12/09/2025 12/10/2015 Results Not on fileafter 05/04/2017 Insurance Type Payer Benefit Subscriber ID Effective Phone Address Plan / Dates Group AARP MEDICARE COMPLETE AARP xxxxxxxxx 2017-P [phone] MED[address]ARE [address] [id number] [place] [address]
--- OUTSIDE RECORDS SUMMARY | 2018-08-16 06:55 | XMS REPORT ---
Author Author Jorge Barrientos Organization [employer] Address Unknown Phone Unavailable Care Team Providers Care Pickle Pumper Name Role Phone Jorge Barrientos CP Unavailable Allergies No Known Allergies Problems Problem Type Condition Code Onset Dates Condition Status Problem Ankle pain, right M25.571 Active Problem Shoulder pain, right M25.511 Active Problem Knee pain, right M25.561 Active Problem Long-term use of immunosuppressant medication Z79.899 Active Problem Osteopenia M85.80 Active Problem Rheumatoid arthritis M06.9 Active Medications No Known Medications Results No Known Results Summary Purpose [employer] Submission
--- OUTSIDE RECORDS SUMMARY | 2018-08-16 06:55 | XMS REPORT ---
Author Author Dereck Stone [facility] [employer] Address Unknown Phone Unavailable Care Team Providers Care Coarse Wire Drawer Name Role Phone Dereck Stone Unavailable Allergies, Adverse Reactions, Alerts Substance Reaction Event Type Humira Info Not Available Drug Allergy Enbrel Info Not Available Drug Allergy Problems Problem Type Condition Code Onset Dates Condition Status Assessment Knee pain, right M25.561 Active Assessment Rheumatoid arthritis M06.9 Active Assessment Long-term use of immunosuppressant medication Z79.899 Active Problem Ankle pain, right M25.571 Active Problem Shoulder pain, right M25.511 Active Problem Knee pain, right M25.561 Active Problem Long-term use of immunosuppressant medication Z79.899 Active Problem Osteopenia M85.80 Active Problem Rheumatoid arthritis M06.9 Active Medications Medication Code System Code Instructions Start Date End Date Status Dosage PredniSONE ND 37181829086 5 MG Orally Once a day October 14, 2017 Active 1 tab ORENCIA SQ NDC 0 125MG SUBCUTANEOUSLY ONCE A WEEK August 21, 2017 Active 125MG Amlodipine Besylate ND 55872601661 5 MG Orally Once a day Active 1 tablet Levothyroxine Sodium ND 06433964376 75 MCG Orally Once a day Active 1 tablet Hydroxychloroquine Sulfate ND 09139113268 200 MG Orally twice a day Mar 05, 2018 Active 1 tablet with food or milk Ibuprofen ND 56911169055 250 MG Orally once a day Active 1 tablet vitamin D NDC 0 800 IU po Once a day Active 1 tablet Primidone ND 92885793988 50 MG Orally once a day Active 1 tablet Alendronate Sodium ND 22317672885 70 MG Orally qwkly May 05, 2018 September 02, 2018 Active 1 tablet Leflunomide ND 78045187122 20MG Orally Once a day Feb 02, 2018 Active 1 tablet Calcium NDC 0 1200 MG orally daily Active 1 tablet Medrol Dose Luis ND 26954033678 4mg Orally once a day June 09, 2018 Active as directed Ropinirole HCl [facility] 36296575562 5 MG Orally Three times a day Active 1 tablet Vital Signs Date/Time: June 09, 2018 BMI 30.56 Index Weight 151.3 lbs Height 59 in Temperature 97.4 F Cardiac Monitoring Heart Rate 60 /min Blood Pressure Diastolic 84 mm Hg Blood Pressure Systolic 134 mm Hg Results No Known Results Summary Purpose [employer] Submission
--- OUTSIDE RECORDS SUMMARY | 2018-08-16 06:55 | XMS REPORT ---
Author Author Dereck Stone [facility] [employer] Address Unknown Phone Unavailable Care Team Providers Care Freezer Tunnel Operator Name Role Phone Dereck Stone Unavailable Allergies, Adverse Reactions, Alerts Substance Reaction Event Type Humira Info Not Available Drug Allergy Enbrel Info Not Available Drug Allergy Problems Problem Type Condition Code Onset Dates Condition Status Assessment Rheumatoid arthritis M06.9 Active Assessment Knee pain, right M25.561 Active Problem Ankle pain, right M25.571 Active Problem Shoulder pain, right M25.511 Active Problem Knee pain, right M25.561 Active Problem Long-term use of immunosuppressant medication Z79.899 Active Problem Osteopenia M85.80 Active Problem Rheumatoid arthritis M06.9 Active Medications Medication Code System Code Instructions Start Date End Date Status Dosage Medrol Dose Luis [facility] 32457022071 4mg Orally once a day June 09, 2018 Active as directed Ropinirole HCl ND 54604792655 5 MG Orally Three times a day Active 1 tablet Hydroxychloroquine Sulfate ND 39428208777 200 MG Orally twice a day Mar 05, 2018 Active 1 tablet with food or milk Amlodipine Besylate ND 14049935359 5 MG Orally Once a day Active 1 tablet PredniSONE ND 77406242299 5 MG Orally Once a day October 14, 2017 Active 1 tab Leflunomide ND 62215364751 20MG Orally Once a day Feb 02, 2018 Active 1 tablet Alendronate Sodium ND 88275544522 70 MG Orally qwkly May 05, 2018 September 02, 2018 Active 1 tablet Primidone ND 46557361059 50 MG Orally once a day Active 1 tablet Calcium NDC 0 1200 MG orally daily Active 1 tablet Levothyroxine Sodium ND 88363990493 75 MCG Orally Once a day Active 1 tablet ORENCIA SQ NDC 0 125MG SUBCUTANEOUSLY ONCE A WEEK August 21, 2017 Active 125MG Ibuprofen ND 37523493091 250 MG Orally once a day Active 1 tablet vitamin D NDC 0 800 IU po Once a day Active 1 tablet Vital Signs Date/Time: June 21, 2018 BMI 30.90 Index Weight 153 lbs Height 59 in Temperature 98.0 F Cardiac Monitoring Heart Rate 76 /min Blood Pressure Diastolic 78 mm Hg Blood Pressure Systolic 110 mm Hg Results No Known Results Summary Purpose [employer] Submission
--- OUTSIDE RECORDS SUMMARY | 2018-08-16 06:55 | XMS REPORT ---
Author Author Jorge Barrientos Organization [employer] Address Unknown Phone Unavailable Care Team Providers Care Home Economics Expert Name Role Phone Jorge Barrientos CP Unavailable [...]
--- OUTSIDE RECORDS SUMMARY | 2018-08-16 06:55 | XMS REPORT ---
Author Author Jorge Barrientos Organization [employer] Address Unknown Phone Unavailable Care Team Providers Care Manager Administrative Name Role Phone Jorge Barirentos CP Unavailable Allergies No Known Allergies Problems [...]
[2018-08-16] MEDS ORDERED: DEXAMETHASONE SOD PHOS 10 MG/1 ML VIAL ONE (07:13)
[2018-08-16] MEDS ORDERED: CEFAZOLIN SOD 2 GM/D5W 50ML 50 ML IV ONE (07:13)
[2018-08-16] MEDS ORDERED: GABAPENTIN 300 MG CAP ONE (07:13)
[2018-08-16] MEDS ORDERED: CELECOXIB 200 MG CAP ONE (07:13)
[2018-08-16] MEDS ORDERED: VANCOMYCIN HCL 1,000 MG ONE (07:50)
[2018-08-16] MEDS ORDERED: TRANEXAMIC ACID 1,000 MG/10 ML ML ONE (07:50)
[2018-08-16] MEDS ORDERED: BACITRACIN 50,000 UNIT VIAL ONE (07:50)
[2018-08-16] MEDS ORDERED: SODIUM CHLORIDE 0.9% 500ML 500 ML ONE (07:51)
[2018-08-16] MEDS ORDERED: HYDROCODONE/APAP 5MG-325MG TAB PO PRN (09:45)
[2018-08-16] MEDS ORDERED: KETOROLAC TROMETHAMINE 30 MG/ML VIAL IV PRN (09:45)
[2018-08-16] MEDS ORDERED: ONDANSETRON HCL INJ 2MG/ML 2ML 2 MG/ML VIAL IV PRN (09:45)
[2018-08-16] MEDS ORDERED: ACETAMINOPHEN 650 MG SUPP PR PRN (09:45)
[2018-08-16] MEDS ORDERED: PROMETHAZINE HCL (IM) 25 MG/ML VIAL IM PRN (09:45)
[2018-08-16] MEDS ORDERED: DOCUSATE SODIUM 100 MG CAP PO PRN (09:45)
[2018-08-16] MEDS ORDERED: DIPHENHYDRAMINE HCL INJ 50 MG/ML VIAL IM/IV PRN (09:45)
--- NOTE | 2018-08-16 10:40 | Diagnostic Imaging Report ---
Right knee radiograph-2 views History: Postoperative. Findings: Status post total right knee arthroplasty and patellar resurfacing with prosthetic components in anatomic alignment. Overlying subcutaneous emphysema and surgical skin sampson are present. Hardware appears intact. No acute osseous abnormality. IMPRESSION: Status post right knee replacement in anatomic position. Signed by: Dr. Maurilio Vences MD on 08/16/2018 10:36 AM
--- OUTSIDE RECORDS SUMMARY | 2018-08-16 10:56 | XMS REPORT | Clinical Summary ---
Author Author [facility] Address Unknown Phone Unavailable Care Team Providers Care Ortho Assistant Name Role Phone Gama Cash MD PCP [...] MRI of the brain, as clinically appropriate. [facility]-[id number] Procedure Note Interface, Radiology Results - 11/26/2017 [...] MRI of the brain, as clinically appropriate. [facility]-[id number] Performing Organization Address City/State/Zipcode Phone Number [facility] [address] [place] [address] after 08/15/2017 Insurance Type Payer Benefit Subscriber ID Effective Phone Address Plan / Dates Group [facility] MEDICARE AARP xxxxxxxxx 2017-P MEDICARE resent COMPLETE [facility] Advance Directives Patient has advance care planning documents on file. For more information, ingrid e contact: [facility] Ellison [address] [place] [address]
--- NOTE | 2018-08-16 12:10 | NUR ---
REC'D PT FROM OR VIA STRETCHER. ON RA AND NO S/S OF DISTRESS. 20 GAUGE R FOREARM IV WITHOUT ANY COMPLICATIONS. TRANSFERRED TO BED WITH ASSISTANCE OF STAFF. BED IN LOWEST POSITION, SIDE RAILS UP X2, AND CALL JIMENEZ WITHIN REACH.
--- NOTE | 2018-08-16 12:28 | NUR ---
PATIENT DME AND HOME HEALTH COMPANIES PRE-ARRANGED BY DR. ARREDONDO'S OFFICE. PATIENT WITH HOME HEALTH AND DME CONTACT INFORMATION. PATIENT AWARE TO CALL CM IF ANY PROBLEMS OCCUR WITHIN 3 DAYS POST- DISCHARGE. HOME HEALTH EXPLAINED IN DEPTH WITH SERVICES PROVIDED. PATIENT VERBALLY UNDERSTOOD. THE FOLLOWING HOME HEALTH AND DME COMPANY VERIFIED PATIENT IS ON SERVICE WITH THEM: [facility] (P) [phone] (F) [phone] PATIENT SPOKE TO LETTY WITH [facility]. LETTY CONFIRMED THAT PATIENT TO RECEIVE HOME HEALTH SERVICES ON 08/18. [facility] (P) [phone] (F) [phone] CM SPOKE TO VIKA AT [facility] REGARDING DME DELIVERY. ANJELICA FROM [employer] CONFIRMED TO DELIVER EQUIPMENT TO BEDSIDE TOMORROW PRIOR TO DISCHARGE.
[2018-08-16 12:35] VITALS: BP 122/56
--- NOTE | 2018-08-16 12:38 | NUR ---
DISCHARGE DISPOSITION: PATIENT TO RETURN HOME WITH THE FOLLOWING HOME HEALTH COMPANY AND DME (SHANNON SMITH, 3 IN 1 COMMODE): [facility] (P) [phone] (F) [phone] LETTY CONFIRMED THAT PATIENT TO RECEIVE HOME HEALTH SERVICES ON 08/18. [facility] (P) [phone] (F) [phone] ANJELICA FROM [employer] CONFIRMED TO DELIVER EQUIPMENT TO BEDSIDE 08/17 PRIOR TO DISCHARGE.
[2018-08-16 14:28] VITALS: BP 125/82
[2018-08-16] MEDS ORDERED: MIDAZOLAM HCL 2 MG/2 ML VIAL ONE (15:25)
[2018-08-16] MEDS ORDERED: FENTANYL CITRATE/PF 100MCG/2 ML INJ ONE (15:25)
[2018-08-16 16:00] VITALS: BP 117/58
[2018-08-16] MEDS ORDERED: SODIUM CHLORIDE 0.9% 1000ML 1,000 ML ONE (16:47)
[2018-08-16] MEDS ORDERED: CELECOXIB 100 MG CAP PO SCH (17:00)
--- NOTE | 2018-08-16 17:18 | Operative Report ---
DATE OF PROCEDURE: 08/16/2018 SURGEON: Yobani Salamanca MD FORMING MACHINE UPKEEP MECHANIC HELPER: David Anne, certified PA. PREOPERATIVE DIAGNOSIS: Osteoarthritis of right knee. POSTOPERATIVE DIAGNOSIS: Osteoarthritis of right knee. PROCEDURE: Right total knee arthroplasty. INDICATIONS: The patient is a 68-year-old lady, who has advanced osteoarthritis of her right knee. She has failed conservative management and would like to proceed with a right total knee replacement. The risks and benefits of the procedure have been explained. She states she understands and wishes to proceed. PROCEDURE IN DETAIL: The patient was brought to the operating room and placed under general anesthetic. She received regional block, prophylactic antibiotics and tranexamic acid in the holding area. Her right lower extremity was prepped and draped in a sterile manner. A preoperative time-out was performed. The extremity was exsanguinated and a proximal tourniquet was inflated to 300 mmHg. An anterior approach with a medial parapatellar arthrotomy was performed. Clear synovial fluid was removed from the joint. Soft tissue releases were performed to bring the knee up into flexion with the patella everted. Meniscal remnants, marginal osteophytes and the anterior cruciate ligament were removed. A Riley and NephPreciouStatus knee system was used. An extramedullary cutting guide was used to resect the proximal tibia. The cut was referenced off the least affected lateral compartment. The slope was dialed-in to match the existing slope. The tibial base plate was a size #3. The central fin punch was impacted and attention was directed towards the distal femur. An intramedullary cutting guide was used to resect the distal femur in 6 degrees of valgus and external rotation referencing off a combination of landmarks including Whitesides line, the epicondylar axis and the posterior condyles. The femoral component was just over a size 4. I elected to move the anterior cut approximately 2 mm to make it a size 4. The anterior and posterior cuts were made. Trial reductions were performed. An 11 mm deep-dish tibial insert provided appropriate soft tissue balancing in flexion and extension. The patella was resurfaced with a 26 mm x 7.5 mm patellar button. The thickness was checked before and after and was right around 21 mm. Patellar tracking was noted to be concentric. The trial implants were then all removed. A 100 mL premixed pericapsular ALEJANDRO injection was placed into the surrounding soft tissue. The knee was thoroughly irrigated with a shower tip pulsatile lavage. Cuts had been irrigated with a diluted mixture of polymyxin and vancomycin spray during the procedure. The components were cemented into place using a single mix of Palacos cement preloaded with antibiotics. Care was taken to remove extravasated cement. The wound was further irrigated while the cement cured. Vancomycin powder of 500 mg was then sprinkled into the joint. The arthrotomy was closed with interrupted #1 Ethibond. The knee was put through flexion and extension to ensure a secure closure. The skin was closed with subcuticular Vicryl and sampson. A sterile Aquacel bandage was applied. The patient was extubated and transported to the recovery room in stable condition. Blood loss was minimal. All needle and sponge counts were correct. Yobani Salamanca MD DR/FREDRICK /[id number]
[2018-08-16] MEDS: ASPIRIN 325 MG TAB PO SCH (17:30)
[2018-08-16] MEDS: CELECOXIB 200 MG CAP PO SCH (17:30)
[2018-08-16] MEDS ORDERED: KETOROLAC TROMETHAMINE 30 MG/ML VIAL ONE (17:54)
[2018-08-16] MEDS ORDERED: PROPOFOL IV EMULSION 10 MG/ML 20 ML VIAL ONE (17:54)
[2018-08-16] MEDS ORDERED: DEXAMETHASONE SOD PHOS INJ 4 MG/ML VIAL ONE (17:54)
[2018-08-16] MEDS ORDERED: ONDANSETRON HCL INJ 2MG/ML 2ML 2 MG/ML VIAL ONE (17:54)
[2018-08-16] MEDS ORDERED: LIDOCAINE HCL 2% LOCAL INJ 5 ML SDV VIAL INJ ONE (17:54)
[2018-08-16] MEDS ORDERED: SEVOFLURANE INHAL SOLN 250 ML PEN BTL ONE (17:54)
[2018-08-16] MEDS ORDERED: ROPIVACAINE 0.5% 5 MG/ML 30 ML SDV ONE (17:59)
[2018-08-16] MEDS ORDERED: SODIUM CHLORIDE 0.9% INJ 10 ML VIAL ONE (17:59)
[2018-08-16] MEDS: CEFAZOLIN SOD 1 GM/NS 50ML 50 ML IV SCH ×2 (18:26→20:51)
--- NOTE | 2018-08-16 18:45 | NUR ---
PT IS RESTING WITH EYES OPENED. FAMILY AT BEDSIDE. FLUIDS RUNNING. NO S/S IF DISTRESS. BED IN LOWEST POSITION, SIDE RAILS UP X2, AND CALL JIMENEZ WITHIN REACH.
[2018-08-16 18:59] VITALS: BP 117/58
--- NOTE | 2018-08-16 19:30 | NUR ---
PATIENT RECEIVED. PATIENT IS RESTING IN BED, AAOX3. RESP EVEN AND UNLABORED. NO ACUTE DISTRESS NOTED. RIGHT KNEE DRESSING NOTED, DRY AND INTACT. FAMILY AT BED SIDE. CALL LIGHT WITHIN REACH. BED LOW/LOCKED. CONTINUE TO MONITOR CLOSELY
[2018-08-16 20:00] VITALS: BP 101/54
[2018-08-16] MEDS: SODIUM CHLORIDE 0.9% 1000ML 1,000 ML IV SCH (20:51)
[2018-08-16] MEDS ORDERED: ZOLPIDEM TARTRATE 5 MG TAB PO PRN (21:00)
--- NOTE | 2018-08-16 21:40 | NUR ---
PUT PATIENT ON CPM MACHINE. PATIENT TOLERATED WELL
[2018-08-16 23:31] VITALS: BP 104/55
--- NOTE | 2018-08-16 23:40 | NUR ---
TAKE OFF CPM MACHINE. PATIENT TOLERATED WELL. PATIENT DENIES OF ANY PAIN AT THIS TIME.
[2018-08-17] VITALS (8 sets, daily range): BP systolic 96–148; BP diastolic 51–72
--- NOTE | 2018-08-17 00:05 | NUR ---
ASSISTED PATIENT TO BSC. WHILE PATIENT WAS TURNING WITH NURSE'S ASSISTANCE, HER KNEE BUCKLE AND SHE LANDED HER KNEES ON THE FLOOR WHILE HOLDING ON NURSE. ASSISTED PATIENT TO BSC AND BACK TO BED. NOTIFIED CHARGE NURSE, FELLED SEAM OPERATOR AND DR ARREDONDO. SAID HE WOULD SEE PATIENT IN THE MORNING.
[2018-08-17] MEDS: ACETAMINOPHEN 1000 MG/100 ML IV SCH ×2 (00:26→06:00)
[2018-08-17 05:48] LABS: HEMATOCRIT 35.5 % (34.2-44.1); HEMOGLOBIN 11.6 g/dL (12.0-16.0)
[2018-08-17] MEDS: CEFAZOLIN SOD 1 GM/NS 50ML 50 ML IV SCH (06:00)
[2018-08-17] MEDS: SODIUM CHLORIDE 0.9% 1000ML 1,000 ML IV SCH ×2 (06:00→15:37)
[2018-08-17] MEDS: ASPIRIN 325 MG TAB PO SCH ×2 (09:43→16:36)
[2018-08-17] MEDS: CELECOXIB 200 MG CAP PO SCH ×2 (09:43→16:36)
[2018-08-17] MEDS: HYDROCODONE/APAP 7.5MG-325MG 1 EA TAB PO PRN ×2 (09:44→16:30)
[2018-08-17] MEDS ORDERED: ACETAMINOPHEN 1000 MG/100 ML IV PRN (09:45)
--- NOTE | 2018-08-17 11:38 | Consultation ---
DATE OF CONSULTATION: I am covering for Dr. Cash. Consult was requested by Dr. Salamanca. HISTORY OF PRESENT ILLNESS: Ms. Kumar is a 68-year-old female with history of tremors, hypertension, hypothyroidism, and arthritis who was electively admitted by Dr. Salamanca for right knee replacement that she underwent yesterday. The consult was called for management of her medical problems. Ms. Kumar is doing very good at present time. SOCIAL HISTORY: She does not smoke and she does not drink. She lives at home with her family. ALLERGIES: NO KNOWN DRUG ALLERGIES. PAST SURGICAL HISTORY: She had eye surgery and cholecystectomy. PAST MEDICAL HISTORY: Arthritis, tremors, hypertension, hypothyroidism. PHYSICAL EXAMINATION: GENERAL: Today, she is awake and alert. VITAL SIGNS: Temperature is 96.5 and blood pressure 124/60. HEART: Regular rate. LUNGS: Clear to auscultation. ABDOMEN: Soft. EXTREMITIES: The right lower extremity has dressing covering her wound on the right knee. LABORATORY DATA: White count is 5.79, hemoglobin is 11.6, and hematocrit 35.5. X-ray done yesterday shows status post right knee replacement in anatomic position. ASSESSMENT: 1. Status post right knee replacement. 2. Arthritis. 3. Hypertension. 4. Hypothyroidism. 5. History of tremors. PLAN: At present time is to continue to monitor hemoglobin and hematocrit. Continue aspirin mg daily. The patient also is on promethazine for nausea and Ambien for insomnia. As per patient, the plan is to go home today and continue with physical therapy as an outpatient. She needs followup with PCP in one week. All this was discussed with the patient. All questions were answered to satisfaction. Thank you, Dr. Salamanca for the consultation. We will be following the patient with you while she is at [facility]. MD FLASH Madison/FREDRICK /[id number]
[2018-08-17] MEDS ORDERED: ASPIRIN325 MG PO (12:46)
[2018-08-17] MEDS ORDERED: ONDANSETRON HCL 4 MG ORAL DISINTEGRATING TAB PO PRN (15:00)
== END 2018-08-17 16:54 | disposition home or self-care (01) ==
LOC: OR 06:48 → PACU V 09:39 → MED/SURG 12:28
PROVIDERS: ADMIT Specialist; ATTEND Specialist
DX: M17.11 Unilateral primary osteoarthritis, right knee (principal); I10 Essential (primary) hypertension; M06.862 Other specified rheumatoid arthritis, left knee; M06.861 Other specified rheumatoid arthritis, right knee; E03.9 Hypothyroidism, unspecified; Z90.49 Acquired absence of other specified parts of digestive tract; R25.1 Tremor, unspecified
CPT/HCPCS: 27447; 36415 ×2; 71046; 73560; 85014; 85018; 85025; 86850; 86900; 86920; 97110; 97116; 97139; 97161; 97530; G0378 ×2; J0131 ×2; J0171; J0690 ×3; J1100 ×2; J1885; J2001; J2250; J2405; J2704; J2795; J3370; J7030 ×2; J7040

== ENCOUNTER → 2019-06-10 | Outpatient (CLI) | payer OTHER ==
[~2019-06-10] MED LIST changes: +ASPIRIN325 MG PO; -ROPIVACAINE 246.25 MG, EPINEPHRINE HCL 1:1000 1ML 0.5 MG, CLONIDINE HCL 0.08 MG, KETORO... INJ ONE
== END ==
LOC: MAMMO 13:43
PROVIDERS: ATTEND Internal Medicine
DX: Z12.31 Encounter for screening mammogram for malignant neoplasm of breast (principal)
CPT/HCPCS: 77067

== ENCOUNTER → 2019-07-06 | Day surgery (SDC) | payer MEDICARE ==
[~2019-07-06] MED LIST changes: +BUPIVACAINE 0.25% 30ML SDV INJ ONE; +BUPIVACAINE 0.5%/EPI 30 ML SDV INJ ONE; +BUPIVACAINE HCL 0.25% 10ML MPF VIAL INJ ONE; +CARBIDOPA-LEVO1 EAC9 PO; +CLINDAMYCIN PHOS 900MG/ 50ML 50 ML IV ONE; +DEXAMETHASONE SOD PHOS INJ 4 MG/ML VIAL ONE; +HYDROGEN PEROXIDE 120 ML BTL ONE; +LIDOCAINE HCL 2% LOCAL INJ 5 ML SDV VIAL INJ ONE; +MIDAZOLAM HCL 2 MG/2 ML VIAL ONE; +ONDANSETRON HCL INJ 2MG/ML 2ML 2 MG/ML VIAL ONE; +ORENCIA125 MG/1 M SQ; +PROPOFOL IV EMULSION 10 MG/ML 20 ML VIAL ONE; +SEVOFLURANE INHAL SOLN 250 ML PEN BTL ONE; +VANCOMYCIN 1GM/NS 250 ML 250 ML ONE; +VITAMIN D310 MCG PO
[2019-07-06 08:20] LABS: BASOPHILS % 0.5 % (0.0-1.0); EOSINOPHILS % 0.2 % (0.0-6.0); HEMATOCRIT 44.3 % (34.2-44.1); HEMOGLOBIN 14.8 g/dL (12.0-16.0); LYMPHOCYTES # (AUTO) 1.2 (1.0-3.2); LYMPHOCYTES % 14.5 % (18.0-39.1); MEAN CORPUSCULAR HEMOGLOBIN 32.2 pg (28-32); MEAN CORPUSCULAR HGB CONC 33.4 g/dL (31-35); MEAN CORPUSCULAR VOLUME 96.3 fL (81-99); MONOCYTES # (AUTO) 0.4 (0.2-0.8); NEUTROPHILS # (AUTO) 6.4 (2.1-6.9); NEUTROPHILS % 79.3 % (38.7-80.0); PLATELET COUNT 143 x10e3/uL (140-360); RED CELL DISTRIBUTION WIDTH 12.9 % (11.7-14.4)
[2019-07-06 08:41] LABS: ANION GAP 12.4 mmol/L (8-16); BLOOD UREA NITROGEN 11 mg/dL (7-26); BUN/CREATININE RATIO 15 (6-25); CALCIUM 9.5 mg/dL (8.4-10.2); CARBON DIOXIDE 25 mmol/L (22-29); CHLORIDE 109 mmol/L (98-107); CREATININE, SERUM 0.73 mg/dL (0.57-1.11); EST GLOMERULAR FILTRATION RATE > 60 ML/MIN (60-); GLUCOSE 104 mg/dL (74-118); POTASSIUM 4.4 mmol/L (3.5-5.1); SODIUM 142 mmol/L (136-145)
--- NOTE | 2019-07-06 09:59 | Diagnostic Imaging Report ---
EXAMINATION: CHEST 2 VIEWS INDICATION: Pre-operative COMPARISON: Chest radiograph 08/13/2018 FINDINGS: LINES/TUBES:None LUNGS:The lungs are well-inflated. No focal consolidation or pulmonary edema. PLEURA:No pleural effusion or pneumothorax. MEDIASTINUM:The cardiomediastinal silhouette appears normal in size and shape. BONES/SOFT TISSUES:No acute osseous injury. ABDOMEN:No free air under the diaphragm. Status post cholecystectomy. IMPRESSION: No focal pneumonia or pulmonary edema. Signed by: Faraz Contreras MD on 07/06/2019 9:56 AM
--- NOTE | 2019-07-06 12:19 | Operative Report ---
DATE OF PROCEDURE: 07/06/2019 SURGEON: Hang Nye MD PREOPERATIVE DIAGNOSIS: Abdominal wall abscess. POSTOPERATIVE DIAGNOSIS: Infected epidermal inclusion cyst of the abdominal wall with abscess formation. PROCEDURE PERFORMED: Incision and abscess of abdominal wall. ANESTHESIA: General. ESTIMATED BLOOD LOSS: Minimal. DRAINS: One quarter-inch Pepperell. COMPLICATIONS: None. INDICATION AND FINDINGS: The patient is a 69-year-old female on prednisone because of arthritis, admitted for incision and drainage of an abscess of the abdominal wall. She does not know how it started. Intraoperative findings were 1-inch well defined abscess, located in the right lower quadrant of the abdomen. There was some surrounding cellulitis. There was evidence of a cyst within the abscess cavity consistent with an infected epidermal inclusion cyst. DESCRIPTION OF PROCEDURE: The patient lying on the operative table in the supine position after administration of general anesthesia. After time-out was performed, she was prepped and draped for incision and drainage of abscess of the abdominal wall. An incision was made directly over the fluctuant abscess. Cavity entered and loculations were broken down the lining of the cyst in that area that was removed as much as could be seen. Some of the necrotic tissue was excised. The cavity and the pus were drained. Culture and sensitivities were taken. Counter incision was made inferior to that and then the two incisions were interconnected with a Huyen drain. After we irrigated the cavity with peroxide, iodine and saline, we then packed the cavity with Betadine containing solution. Sterile dressing was applied. In recovery room, I called the patient's , given detailed instructions how to handle the dressing which is to be removed the packing on Thursday with the first shower and then just leave the Pepperell drain alone and to follow up in my office on Thursday. Prescription for antibiotics were given. MD JASYMNE Sierra/MODL /[id number] [facility]SCAR
[2019-07-06 14:55] VITALS: BP 129/84
== END | disposition home or self-care (01) ==
LOC: OR 06:46
PROVIDERS: ATTEND Surgery
DX: L02.211 Cutaneous abscess of abdominal wall (principal); L72.0 Epidermal cyst; L03.311 Cellulitis of abdominal wall; I10 Essential (primary) hypertension; M06.9 Rheumatoid arthritis, unspecified; M12.9 Arthropathy, unspecified; R25.1 Tremor, unspecified; I96 Gangrene, not elsewhere classified; Z79.82 Long term (current) use of aspirin
CPT/HCPCS: 36415; 71046; 80048; 85025; 87071; 87075; 87205; 93005; J1100; J2001; J2250; J2405; J3370

== ENCOUNTER → 2019-08-19 | Day surgery (SDC) | payer MEDICARE, OTHER ==
[2019-08-16 13:10] LABS: BASOPHILS % 0.4 % (0.0-1.0); EOSINOPHILS # (AUTO) 0.1 (0.0-0.4); EOSINOPHILS % 0.8 % (0.0-6.0); HEMATOCRIT 45.5 % (34.2-44.1); HEMOGLOBIN 14.7 g/dL (12.0-16.0); LYMPHOCYTES # (AUTO) 1.9 (1.0-3.2); LYMPHOCYTES % 20.6 % (18.0-39.1); MEAN CORPUSCULAR HEMOGLOBIN 31.2 pg (28-32); MEAN CORPUSCULAR HGB CONC 32.3 g/dL (31-35); MEAN CORPUSCULAR VOLUME 96.6 fL (81-99); MONOCYTES # (AUTO) 0.8 (0.2-0.8); MONOCYTES % 8.4 % (4.4-11.3); NEUTROPHILS # (AUTO) 6.4 (2.1-6.9); NEUTROPHILS % 69.4 % (38.7-80.0); PLATELET COUNT 175 x10e3/uL (140-360); RED BLOOD COUNT 4.71 x10e6/uL (3.6-5.1)
[2019-08-16 13:27] LABS: ANION GAP 12.5 mmol/L (8-16); BLOOD UREA NITROGEN 13 mg/dL (7-26); BUN/CREATININE RATIO 18 (6-25); CALCIUM 9.5 mg/dL (8.4-10.2); CARBON DIOXIDE 26 mmol/L (22-29); CHLORIDE 107 mmol/L (98-107); CREATININE, SERUM 0.73 mg/dL (0.57-1.11); EST GLOMERULAR FILTRATION RATE > 60 ML/MIN (60-); GLUCOSE 91 mg/dL (74-118); POTASSIUM 3.5 mmol/L (3.5-5.1); SODIUM 142 mmol/L (136-145)
--- NOTE | 2019-08-16 14:14 | Diagnostic Imaging Report ---
TECHNIQUE: Frontal and lateral views of the chest. INDICATION: ^PRE-OP COMPARISON: None. IMPRESSION: Lines and hardware: None. Heart and mediastinum: Normal cardiomediastinal silhouette. Lungs and pleura: No focal airspace consolidation. No pleural effusion. No pneumothorax. Soft tissues and bones: No acute bony abnormality. Signed by: Naveen Noyola MD on 08/16/2019 2:10 PM
[~2019-08-19] MED LIST changes: -BUPIVACAINE 0.25% 30ML SDV INJ ONE; -BUPIVACAINE HCL 0.25% 10ML MPF VIAL INJ ONE; -CLINDAMYCIN PHOS 900MG/ 50ML 50 ML IV ONE; -HYDROGEN PEROXIDE 120 ML BTL ONE; +LIDOCAINE HCL 1% LOCAL INJ 20 ML VIAL ONE; -MIDAZOLAM HCL 2 MG/2 ML VIAL ONE; +SINEMET 25-1001 EACH PO; -VANCOMYCIN 1GM/NS 250 ML 250 ML ONE; +VITAMIN D250 MCG PO
[2019-08-19 09:35] VITALS: BP 114/74
--- NOTE | 2019-08-19 11:57 | Operative Report ---
DATE OF PROCEDURE: 08/19/2019 SURGEON: Hang Nye MD PREOPERATIVE DIAGNOSIS: Epidermal inclusion cyst of the abdominal wall previously drained. POSTOPERATIVE DIAGNOSIS: Epidermal inclusion cyst of the abdominal wall previously drained. PROCEDURE PERFORMED: Excision of previously drained epidermal inclusion cyst of the abdominal wall. MOTOR VEHICLE EXAMINER: KANG Hardin ESTIMATED BLOOD LOSS: Minimal. DRAINS: None. COMPLICATIONS: None. INDICATION AND FINDINGS: This patient is a 69-year-old female, who had undergone several weeks ago I and D of infected epidermal inclusion cyst of the right side of the abdominal wall and now is admitted for excision of the residual cyst. INTRAOPERATIVE FINDINGS: There was no evidence of infection. The previously drained cyst was located to the right side of the umbilicus along a natural crease. The entire previously drained area was excised. We did not see any leaving behind, no residual cyst. DESCRIPTION OF PROCEDURE: With the patient lying on the operative table in the supine position, after administration of general anesthesia, she was prepped and draped for excision of previously drained epidermal inclusion cyst of the abdomen. An elliptical incision was made. The residual cyst was excised down with the subcutaneous tissue. The wound was irrigated and any bleeding points were cauterized. The wound was then infiltrated with 0.25% Marcaine with epinephrine and then the wound was closed in two layers using 3-0 Vicryl for the soft tissues, and the skin was closed using 3-0 silk vertical mattress sutures. Sterile dressing was applied. The patient tolerated the procedure well, was taken to recovery room stable condition. Hang Nye MD PJR/MODL /[id number]
== END | disposition home or self-care (01) ==
LOC: OR 07:10
PROVIDERS: ATTEND Surgery
DX: L72.0 Epidermal cyst (principal); R03.0 Elevated blood-pressure reading, without diagnosis of hypertension; M26.609 Unspecified temporomandibular joint disorder, unspecified side; H91.90 Unspecified hearing loss, unspecified ear; E03.9 Hypothyroidism, unspecified; Z01.810 Encounter for preprocedural cardiovascular examination; Z01.812 Encounter for preprocedural laboratory examination; Z01.818 Encounter for other preprocedural examination; Z11.59 Encounter for screening for other viral diseases
CPT/HCPCS: 22902; 36415; 71046; 80048; 85025; 87635; 88304; 93005; J1100; J2001; J2405; J2704

== ENCOUNTER → 2020-08-01 | Outpatient (CLI) | payer MEDICARE ==
[~2020-08-01] MED LIST changes: -BUPIVACAINE 0.5%/EPI 30 ML SDV INJ ONE; -DEXAMETHASONE SOD PHOS INJ 4 MG/ML VIAL ONE; -LIDOCAINE HCL 1% LOCAL INJ 20 ML VIAL ONE; -LIDOCAINE HCL 2% LOCAL INJ 5 ML SDV VIAL INJ ONE; -ONDANSETRON HCL INJ 2MG/ML 2ML 2 MG/ML VIAL ONE; -PROPOFOL IV EMULSION 10 MG/ML 20 ML VIAL ONE; -SEVOFLURANE INHAL SOLN 250 ML PEN BTL ONE
== END ==
LOC: MAMMO 14:15
PROVIDERS: ATTEND Internal Medicine
DX: Z12.31 Encounter for screening mammogram for malignant neoplasm of breast (principal)
CPT/HCPCS: 77067

== ENCOUNTER → 2020-08-15 | Outpatient (CLI) | payer MEDICARE | LOC: DX 13:58 | PROVIDERS: ATTEND Internal Medicine | DX: M89.9 Disorder of bone, unspecified (principal); M81.8 Other osteoporosis without current pathological fracture | CPT/HCPCS: 77080 ==

== ENCOUNTER → 2020-08-28 | Outpatient (CLI) | payer MEDICARE | LOC: US 08:01 | PROVIDERS: ATTEND Internal Medicine Gastroenterology | DX: R74.8 Abnormal levels of other serum enzymes (principal) | CPT/HCPCS: 76705 ==

== ENCOUNTER → 2021-08-14 | Outpatient (CLI) | payer MEDICARE | LOC: RAD 09:26 | PROVIDERS: ATTEND Internal Medicine | DX: M54.2 Cervicalgia (principal); M62.838 Other muscle spasm | CPT/HCPCS: 72050 ==

== ENCOUNTER → 2022-08-07 | Outpatient (CLI) | payer MEDICARE | LOC: MAMMO 12:04 | PROVIDERS: ATTEND Internal Medicine | DX: Z12.31 Encounter for screening mammogram for malignant neoplasm of breast (principal) | CPT/HCPCS: 77067 ==

== ENCOUNTER 2024-01-07 09:18 | Emergency (ER) | payer MEDICARE ==
[~2024-01-07] VITALS: Ht 162.6 cm; Wt 86.2 kg
[~2024-01-07 09:18] MED LIST changes: +AUGMENTIN 500-1 EACH PO
[2024-01-07 09:45] VITALS: PULSE 66; RESP 15; TEMP 98.1
[2024-01-07] MEDS ORDERED: SODIUM CHLORIDE 0.9% 500ML 500 ML IV ONE (10:00)
[2024-01-07 10:36] LABS: BASOPHILS % 0.4 % (0.0-1.0); EOSINOPHILS # (AUTO) 0.1 (0.0-0.4); EOSINOPHILS % 1.6 % (0.0-6.0); HEMATOCRIT 44.4 % (34.2-44.1); HEMOGLOBIN 13.9 g/dL (12.0-16.0); LYMPHOCYTES # (AUTO) 2.2 (1.0-3.2); LYMPHOCYTES % 29.6 % (18.0-39.1); MEAN CORPUSCULAR HEMOGLOBIN 31.8 pg (28-32); MEAN CORPUSCULAR HGB CONC 31.3 g/dL (31-35); MEAN CORPUSCULAR VOLUME 101.6 fL (81-99); MONOCYTES # (AUTO) 0.5 (0.2-0.8); MONOCYTES % 6.6 % (4.4-11.3); NEUTROPHILS # (AUTO) 4.5 (2.1-6.9); NEUTROPHILS % 61.3 % (38.7-80.0); PLATELET COUNT 185 x10e3/uL (140-360); RED BLOOD COUNT 4.37 x10e6/uL (3.6-5.1); RED CELL DISTRIBUTION WIDTH 12.9 % (11.7-14.4); WHITE BLOOD COUNT 7.42 x10e3/uL (4.8-10.8)
[2024-01-07 10:46] LABS: INR 1.11; PROTHROMBIN TIME 14.9 seconds (11.9-14.5)
[2024-01-07 10:47] LABS: PARTIAL THROMBOPLASTIN TIME 31.1 seconds (23.8-35.5)
[2024-01-07 11:02] LABS: ALBUMIN 3.9 g/dL (3.5-5.0); ALBUMIN/GLOBULIN RATIO 0.9 (0.8-2.0); ANION GAP 13.5 mmol/L (8-16); BILIRUBIN,TOTAL 1.1 mg/dL (0.2-1.2); CALCIUM 9.6 mg/dL (8.4-10.2); CREATININE, SERUM 0.91 mg/dL (0.57-1.11); MAGNESIUM 2.3 MG/DL (1.3-2.1); POTASSIUM 4.5 mmol/L (3.5-5.1); TOTAL PROTEIN 8.3 g/dL (6.5-8.1)
[2024-01-07 11:06] LABS: BILIRUBIN,URINE NEGATIVE (NEGATIVE); CLARITY,URINE CLEAR (CLEAR); COLOR,URINE YELLOW (YELLOW); GLUCOSE, URINE NEGATIVE (NEGATIVE); KETONES,URINE NEGATIVE (NEGATIVE); LEUKOCYTE ESTERASE ,URINE SMALL (NEGATIVE); NITRITE,URINE NEGATIVE (NEGATIVE); PH,URINE 7 (5 - 7); PROTEIN,URINE DIPSTICK NEGATIVE (NEGATIVE); URINE UROBILINOGEN 1 mg/dL (0.2 - 1)
[2024-01-07 11:08] LABS: BACTERIA,URINE MODERATE /HPF; EPITHELIAL CELLS,URINE MANY /LPF
[2024-01-07 11:10] LABS: RENAL EPITHELIAL CELLS,URINE FEW
[2024-01-07 11:15] LABS: RBC,URINE 21-50 /HPF (0-5)
[2024-01-07] MEDS: ONDANSETRON HCL INJ 2MG/ML 2ML 2 MG/ML VIAL IV STA (11:46)
[2024-01-07] MEDS: SODIUM CHLORIDE 0.9% 1000ML 1,000 ML IV STA (11:47)
[2024-01-07] MEDS: KETOROLAC TROMETHAMINE 30 MG/ML VIAL IV STA (11:49)
[2024-01-07] MEDS ORDERED: CEFDINIR300 MG PO (12:20)
[2024-01-07] MEDS ORDERED: PYRIDIUM100 MG PO (12:20)
[2024-01-07 12:33] VITALS: BP 143/78; PULSE 71; RESP 17; O2SAT 100
== END 2024-01-07 13:07 | disposition home or self-care (01) ==
LOC: ER 09:52
DX: R10.31 Right lower quadrant pain (principal); N12 Tubulo-interstitial nephritis, not specified as acute or chronic; I10 Essential (primary) hypertension; E03.9 Hypothyroidism, unspecified; E78.5 Hyperlipidemia, unspecified; G20.A1 Parkinson's disease without dyskinesia, without mention of fluctuations; F02.80 Dementia in other diseases classified elsewhere, unspecified severity, without behavioral disturbance, psychotic disturbance, mood disturbance, and anxiety
CPT/HCPCS: 36415; 71045; 74176; 80053; 81001; 83735; 83880; 85025; 85610; 85730; 87086; 87186; 99284; J0696; J1885; J2405; J7030

== ENCOUNTER → 2024-08-05 | Outpatient (REF) | payer MEDICARE ==
[~2024-08-05] MED LIST changes: +CEFDINIR300 MG PO; +FOLIC ACID0.4 MG PO; +GEMTESA75 MG; +LISINOPRIL10 MG PO; +METHOCARBAMOL750 MG PO; +METHOTREXATE2.5 MG PO; +PROTONIX20 MG PO; +PYRIDIUM100 MG PO; +SIMVASTATIN20 MG PO; +TOPIRAMATE25 MG PO
== END ==
LOC: MAMMO 09:13
PROVIDERS: ATTEND Internal Medicine
DX: Z12.31 Encounter for screening mammogram for malignant neoplasm of breast (principal)
CPT/HCPCS: 77067